=== PATIENT | male | born 1940 | race Caucasian/White ===

== ENCOUNTER 2019-12-19 09:55 | Outpatient (CLI) | payer OTHER, SELFPAY ==
--- NOTE | ~2019-12-19 | XR_ITS ---
EXAMINATION: XR chest 2V 12/19/2019 11:21 INDICATION: Preop. Hypertension. PROCEDURE: 2 view chest COMPARISON: 02/16/2008 FINDINGS: The lungs are clear. The cardiomediastinal silhouette is within normal limits. There are no pleural effusions. There is no pneumothorax suspected. 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 IMPRESSION: 1: NO ACUTE CARDIOPULMONARY DISEASE. Reviewed, dictated and finalized at location A.
[2019-12-19 11:21] LABS: Basophils Percent Auto 0.6 % (0.2-1.2); Eosinophils Absolute Auto 0.1 K/mm3 (0-0.3); Eosinophils Percent Auto 0.7 % (0-4.4); Hematocrit 37.2 % (42.0-52.0); Hemoglobin 12.6 g/dL (14.0-18.0); Immature Granulocyte Absolute 0.03 K/mm3 (0.00-0.031); Immature Granulocyte Percent A 0.4 % (0-0.5); Lymphocytes Absolute Auto 1.08 K/mm3 (0.9-3.2); Lymphocytes Percent Auto 15.3 % (18.3-44.2); Mean Corpuscular HGB Conc 33.9 g/dl (32-36); Mean Corpuscular Hemoglobin 31.7 pg (26-34); Mean Corpuscular Volume 93.7 fl (80-100); Mean Platelet Volume 10.5 fl (7.4-10.4); Monocytes Absolute Auto 0.7 K/mm3 (0.1-0.6); Monocytes Percent Auto 9.4 % (2.6-8.5); Neutrophils Absolute Auto 5.2 K/mm3 (1.3-6.7); Neutrophils Percent Auto 73.6 % (45.5-73.1); Platelet Count Result 240 k/mm3 (150-375); Red Blood Count 3.97 M/mm3 (4.6-6.20); Red Cell Distribution Width 13.5 % (11.5-14.5); White Blood Count 7.1 K/mm3 (4.5-10.0)
[2019-12-19 11:30] LABS: Urine Cotinine NEGATIVE
[2019-12-19 11:36] LABS: Anion Gap 8 mmol/L (8-16); Blood Urea Nitrogen 15 mg/dL (9-20); Calcium 8.8 mg/dL (8.4-10.2); Carbon Dioxide 25 mmol/L (22-30); Chloride 100 mmol/L (98-107); Estimated Glomerular Filt Rate 49; Glucose 87 mg/dL (75-110); Potassium 3.6 mmol/L (3.4-5.0); Sodium 133 mmol/L (137-145)
[2019-12-19 11:46] LABS: Hemoglobin A1C 5.1 % (<5.7)
== END 2019-12-19 09:56 | disposition home or self-care (01) ==
LOC: ANHSURGERY 10:00
PROVIDERS: Visit Provider Orthopaedic Surgery
DX: Z01.818 Encounter for other preprocedural examination (principal); M17.12 Unilateral primary osteoarthritis, left knee
CPT/HCPCS: 71046; 80048; 80307; 82040; 83036; 85025; 87070; 87077; 87186

== ENCOUNTER 2020-01-05 02:40 | Outpatient (CLI) | payer OTHER, SELFPAY ==
[2020-01-05 18:16] LABS: SARS-CoV-2 RNA PCR Negative
== END 2020-01-05 02:41 | disposition home or self-care (01) ==
LOC: ANHCOVIDDT 02:40
PROVIDERS: Visit Provider Orthopaedic Surgery
DX: Z01.812 Encounter for preprocedural laboratory examination (principal); Z20.828 Contact with and (suspected) exposure to other viral communicable diseases
CPT/HCPCS: 87635; C9803; U0003

== ENCOUNTER 2020-01-07 01:22 | Day surgery (SDC) | payer OTHER, SELFPAY ==
[2019-12-19 10:09] VITALS: BMI 25.7
[2019-12-19 10:17] VITALS: BP 173/72; PULSE 67; RESP 16; TEMP 36.8; O2SAT 99
--- NOTE | 2019-12-29 14:07 | PC.NURSE ---
STATES NO CHANGE IN HEALTH HX SINCE LAST INTERVIEW
--- NOTE | 2020-01-05 15:32 | PM.IMHP ---
H&P: HPI History of Present Illness Date/Time: 01/05/20 15:32 Chief complaint: Severe OA Left Knee Narrative: Jacky Mendiola is a [address] Montoya who presents today for a left total knee arthroplasty. Patient has been having pain in this knee for years. It is progressively worsening. He has severe medial compartment arthritis with a large cyst in the medial tibial plateau. His arthritis is progressing as well as his symptoms. He has symptoms on a daily basis and is fairly miserable. He has reached a point where he feels he would rather proceed with total knee arthroplasty rather continue nonsurgical treatment. Review of Systems Review of Systems: All systems reviewed & are unremarkable except as noted in HPI and below PMFSH Past Medical History Medical History Hypertension Seroma of musculoskeletal structure after musculoskeletal system procedure Sleep apnea Surgical History Surgical History H/O repair of rotator cuff History of colon resection laparoscopic sigmoid colon resection History of right inguinal hernia repair 01/20/19 Family History Family History Father Family history of malignant neoplasm of urinary bladder Malignant neoplasm of prostate Cancer Other Diabetes mellitus Social History Social History Smoking packs per day: 1 Smoking cigarettes per day: 20.0 Years smoked: 20 Smoking pack-years: 20.00 Smoking status: Former smoker Tobacco type: cigarettes Second hand tobacco smoke exposure: No Smoking end date: 03/26/68 Additional smoking assessment comments: DENIES ANY FORM OF TOBACCO/NICOTINE USE Alcohol intake: current Drinks per week: 6 Substance use: never Substance use type: does not use Gender identity (if verbalized by the patient): Male Spiritual care concerns: No Meds Home Medications and Allergies Home Medications Medication Instructions Recorded Confirmed Type ibuprofen 600 mg PO Q6H PRN #14 tablet 01/29/19 12/29/19 Rx tamsulosin 0.4 mg capsule 0.4 mg PO HS #90 cap 10/06/19 12/29/19 Rx acetaminophen [Tylenol] 650 mg PO PRN PRN 12/19/19 12/29/19 History fluticasone propionate [Flonase 1 spray INTRANASAL PRN PRN 12/19/19 12/29/19 History Allergy Relief] multivitamin,[id number] 1 tablet PO DAILY 12/19/19 12/29/19 History [Complete Multivitamin] Allergies Allergy/AdvReac Type Severity Reaction Status Date / Time No Known Allergies Allergy Verified 12/29/19 14:00 Exam Narrative: Exam Narrative: 79-year-old male very alert pleasant in no distress. He is 6 ft tall 208 lb. He walks without a gait aid has a mild limp. He has a moderate large effusion left knee. No redness or warmth. Range of motion of the knee is from 5-130 degrees. He has moderate tenderness over the medial joint line. Normal stability AP and mediolateral. 1+ edema around the ankle on the left trace on the right. Calves are soft nontender. 2+ posterior tibial artery pulse on the left absent dorsalis pedis pulse. No numbness to light touch sensation. Hip range of motion is full without discomfort. Normal quad strength. Resp: Auscultation: clear to auscultation bilaterally Cardio: Rate: regular rate Rhythm: regular rhythm Assessment and Plan Additional Plan Patient has severe medial compartment arthritis in the left knee with continued symptoms. He has reached a point where he would rather proceed with total knee arthroplasty rather continue nonsurgical treatment. Surgical procedures well as risks and complications were discussed in detail and all questions were answered. He will see his primary care doctor for pre-surgical clearance. 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 Echocardiogram showed ejection fraction 55%
[2020-01-07] VITALS (12 sets, daily range): BP systolic 96–165; BP diastolic 60–104; PULSE 67–107; RESP 10–20; TEMP 36.2–36.8; O2SAT 94–100
--- NOTE | ~2020-01-07 | XR_ITS ---
EXAMINATION: XR knee LT 2V DATE: 01/07/2020 16:33 INDICATION: Postoperative evaluation following left total knee arthroplasty. TECHNIQUE: Anteroposterior and lateral views of the left knee were obtained. COMPARISON: None. FINDINGS: Left total knee arthroplasty without patellar resurfacing appears well seated and in near anatomic al ignment. No fractures identified. Expected postoperative subcutaneous and intra-articular gas. IMPRESSION: 1. Left total knee arthroplasty, negative for postoperative purposes. Reviewed, dictated and finalized at location B.
[2020-01-07] MEDS: LACTATED RINGERS 1,000 ML 30 ML IV CONT ×2 (10:59→16:15)
--- NOTE | 2020-01-07 11:07 | WPDANESEPPF ---
Anes - Initial Pre Proc Eval Procedure: Operation Date: 01/07/20 12:00 Proposed Procedures p Left Total Knee Arthroplasty - Vincent Martínez MD Date/Time: 01/07/20 11:07 Surgeon: Vincent Martínez MD Pre Op Diagnosis: Severe OA Left Knee Patient Data Age: 79 Gender: M Height: 6 ft 2 in Weight: 91 kg Last Vital Signs Temp 98.3 F 12/19/19 10:17 Pulse 67 12/19/19 10:17 Resp 16 12/19/19 10:17 BP 173/72 H 12/19/19 10:17 Pulse Ox 99 12/19/19 10:17 Allergies Allergy/AdvReac Type Severity Reaction Status Date / Time No Known Allergies Allergy Verified 12/29/19 14:00 Home Medications Medication Instructions Recorded Confirmed Type ibuprofen 600 mg PO Q6H PRN #14 tablet 01/29/19 12/29/19 Rx tamsulosin 0.4 mg capsule 0.4 mg PO HS #90 cap 10/06/19 12/29/19 Rx acetaminophen [Tylenol] 650 mg PO PRN PRN 12/19/19 12/29/19 History fluticasone propionate [Flonase 1 spray INTRANASAL PRN PRN 12/19/19 12/29/19 History Allergy Relief] multivitamin,[id number] 1 tablet PO DAILY 12/19/19 12/29/19 History [Complete Multivitamin] Patient hx anesthesia problems: none Family hx anesthesia problems: none PMFSH Past Medical History Medical History Hypertension Seroma of musculoskeletal structure after musculoskeletal system procedure Sleep apnea Surgical History Surgical History H/O repair of rotator cuff History of colon resection laparoscopic sigmoid colon resection History of right inguinal hernia repair 01/20/19 Family History Family History Father Family history of malignant neoplasm of urinary bladder Malignant neoplasm of prostate Cancer Other Diabetes mellitus Social History Social History Smoking packs per day: 1 Smoking cigarettes per day: 20.0 Years smoked: 20 Smoking pack-years: 20.00 Smoking status: Former smoker Tobacco type: cigarettes Second hand tobacco smoke exposure: No Smoking end date: 03/26/68 Additional smoking assessment comments: DENIES ANY FORM OF TOBACCO/NICOTINE USE Alcohol intake: current Drinks per week: 6 Alcohol use details: BEER Substance use: never Substance use type: does not use Living arrangements: with family Gender identity (if verbalized by the patient): Male Spiritual care concerns: No Anes - Eval Final PreProcedure Day of Procedure 01/07/20 11:07 Patient weight: normal Heart: regular rate and rhythm Lungs: clear to auscultation Airway: Mallampati scale class II Neurological: alert and oriented Last oral intake: >/= 8 hours ASA classification: III Emergent: no Anesthetic plan: proceed Anesthesia type and monitoring: general LMA and standard monitoring Informed Consent: The patient's anesthetic plan and its attendant risks and benefits were discussed with the patient/family/POA. Questions were solicited and answers provided to the satisfaction of the patient/family/POA.
[2020-01-07] MEDS: TRANEXAMIC ACID 1,000MG/ISO100 1,000 MG/100 ML BAG 200 MG IVPB (11:22)
--- NOTE | 2020-01-07 11:53 | WPDHPUPDATE1 ---
History and Physical Update Update Date/Time: 01/07/20 11:53 History and Physical has been reviewed, including an updated exam of the patient. There are NO changes in the patient's condition. Risks, benefits, and alternatives have been discussed and questions answered. Patient agrees to proceed with procedure.
--- NOTE | 2020-01-07 12:38 | ECG_ITS ---
Measurements Intervals [place] Rate: 69 P: 42 DC: 181 QRS: 19 QRSD: 100 T: -10 QT: 423 QTc: 454 Interpretive Statements SINUS RHYTHM VENTRICULAR PREMATURE COMPLEX BORDERLINE ST-T WAVE ABNORMALITY- INFERIOR LEADS BASELINE ARTIFACT- I, II, III, AVF, V1-V2 BORDERLINE ECG Electronically Signed On 01-07-2020 13:09:53 CDT by Pramod Small D.O.
[2020-01-07] MEDS: ceFAZolin 2 GM/D5W 50 ML 2 GM/50 ML BAG IVPB (12:57)
--- NOTE | 2020-01-07 13:15 | ECG_ITS ---
Measurements Intervals [place] Rate: 66 P: 71 VT: 188 QRS: 24 QRSD: 102 T: -8 QT: 432 QTc: 454 Interpretive Statements SINUS RHYTHM BORDERLINE ST-T WAVE ABNORMALITY- INFERIOR LEADS BASELINE ARTIFACT- I, II, AVR BORDERLINE ECG Electronically Signed On 01-07-2020 13:52:47 CDT by Pramod Small D.O.
[2020-01-07] MEDS: ceFAZolin SODIUM 1 GM VIAL 3 GM IRRIGATION (13:35)
[2020-01-07] MEDS: GENTAMICIN BONE CEMENT REFOBACIN 1 EACH TOPICAL (13:45)
[2020-01-07] MEDS: TRANEXAMIC ACID 1,000 MG/10 ML AMPUL 1000 MG IV PUSH (15:12)
[2020-01-07] MEDS: ceFAZolin SODIUM 1 GM VIAL IV PUSH (15:14)
--- NOTE | 2020-01-07 16:15 | PM.PROC ---
Procedure Note - Detailed Date of procedure: 01/07/20 Pre-op diagnosis: Severe OA Left Knee Post-op diagnosis: same Procedure performed: Left total knee arthroplasty Description of procedure: Patient was brought to the operating room and general anesthesia was administered. He had an EKG prior to that that showed that he had sinus rhythm and atrial fibrillation intermittently and some PVCs which were noted before surgery. After consultation with Anesthesia, and review of his preoperative assessment and the city routeman prediction that he may have arrhythmia during surgery and advice to place him and a monitored unit after surgery if he did have arrhythmia during surgery, we elected to proceed. He received 2 g of Ancef weight based vancomycin 1 g of tranexamic acid preoperatively and the left leg was prepped draped usual fashion. Limb was exsanguinated tourniquet elevated to 300 mmHg. A 7 in longitudinal incision was made and a standard medial parapatellar arthrotomy utilized. Cartilage behind the patella and the trochlea was normal. I felt that the patella was most suitable for non resurfacing. A minimal lateral facetectomy was performed. A guide marvin was inserted down the femoral canal after aspiration of canal contents using the 5 degree valgus bushing 10 mm of bone removed from the distal femur. The tibia was cut to remove a skim cut off the medial tibial plateau the removed about 11 mm laterally. The cyst in the medial aspect of the medial plateau was carefully debrided. It was filled with mostly fibrocartilage of varying densities and this was carefully debrided down to intact bone. There was some violation of the medial wall proximally at the surface of the tibial plateau and this confirmed the on suitability for a partial knee replacement. Meniscal remnants were excised the PCL was recessed. Flexion gap measured 8 mm medially 12 mm laterally. We set the femoral guide at 5? of external rotation which matched Whitesides line and posterior referencing pin holes were placed and we applied the 72.5 cutting block which had a nice fit both anterior posterior and mediolateral. The tibia was sized to a size vanguard 75. His tibia was a little bit too narrow to have the 79 tibia fit without overhang at the proper rotation. With the 75 only a very small area of the edge of the component medially set over the defect so I did not feel we needed the stem. This was punched and we trialed and we found that the 13 mm insert gave appropriate stability at 90? of flexion but lacked a full 10? of extension. We removed 2 mm off the distal femur released posterior central capsule as he did have a 5 degree flexion contracture preoperatively and on trialing again we found that we still lacked about 2? of extension the barely positive bounce and no plate medially in extension. An additional 1 mm bone was removed from the distal femur chamfer cuts revisited and this time the naked knee came out to full extension with 1 mm medial opening no bounce and gravity flexion 140 with excellent anterior drawer stability throughout. The bony surfaces were prepared with a step drill. Two batches of methylmethacrylate were mixed 1 containing the gentamicin powder immediately applied to the tibial component the femoral component. Cement applied to the tibia and the defect carefully filled with cement and the tibial component fully seated. Cement applied to the femur femoral component fully seated and the knee brought into extension with a 13 mm 5 and 1 trial for cement pressurization. Tourniquet was released. After cement hardening excess cement was sought for removed. Hemostasis was achieved. Local anesthetic cocktail was injected. We trialed and the 13 was the appropriate size and this was snapped into place without difficulty range of motion stability and patellar tracking reconfirmed. Arthrotomy was closed with interrupted 2. Vicryl and running 1. You directional kobi strata fix
[2020-01-07] MEDS: fentaNYL CITRATE INJ (*CRX) 100 MCG/2 ML VIAL 25 MCG IV PUSH ×5 (16:35→17:44)
--- NOTE | 2020-01-07 17:16 | SUR.PHASEI ---
1715 - unable to palpate left pedal pulse. doppler used and strong pulse noted. left foot and toes are pink and warm to touch. dr. jones aware. ordered to remove TEDS on both legs and resume SCDS.
--- NOTE | 2020-01-07 19:46 | ADMGEN ---
This patient, Jacky Mendiola, was admitted to IMU Room [id number]. Patient/family oriented to hospital policies and general routines including ID bracelet, bed and alarms, visiting hours, pain management, procedures, bathroom and other care routines, personal items, smoking policy, room service/diet, and visiting hours. Valuables list has been completed. Information on how to activate the Rapid Response Team has been discussed. Patient/Family are encouraged to report perceived risks to care and to ask questions if they do not understand what they are told or what they should do.
[2020-01-07] MEDS: ACETAMINOPHEN 500 MG TABLET 1000 MG PO (20:12)
[2020-01-07] MEDS: DOCUSATE SODIUM 100 MG CAPSULE PO (20:12)
[2020-01-07] MEDS: oxyCODONE HCL (*CRX) 2.5 MG TAB IR PO (20:12)
[2020-01-07] MEDS: TAMSULOSIN HCL 0.4 MG CAPSULE PO (20:46)
--- NOTE | 2020-01-07 21:56 | PM.IMCN ---
Assessment and Plan Assessment and plan (1) History of total left knee replacement: Code(s): Z96.652 - Presence of left artificial knee joint Status: Acute Assessment and Plan: performed today. See operative report. Dressing is dry and intact to left knee. He has bilateral SCDs on and TEDs. DVT prophylaxis per ortho. Pain management per Ortho. Postop care per Ortho. Patient stated he is going to his daughter's house to rehab for short period time before he goes home to his and dog. It looks like the patient will be on Eliquis as well. (2) BPH w urinary obs/LUTS: Code(s): N40.1 - Benign prostatic hyperplasia with lower urinary tract symptoms; N13.8 - Other obstructive and reflux uropathy Status: Chronic Assessment and Plan: The patient is having some difficulty urinating at this time. We may need to straight cath if he has a bladder scan is over 300. The patient is on tamsulosin so we did restart that. (3) Essential (primary) hypertension: Code(s): I10 - Essential (primary) hypertension Status: Chronic Assessment and Plan: Patient currently is not on any blood pressure medicine will continue to monitor. Patient recently underwent at very thorough cardiac workup and has a EF of 55-60% he also had a stress test and was cleared by Cardiology. HPI Data of Consult Consult date: 01/07/20 Requesting Physician: Vincent Jones MD Primary Care Provider: Naldo Montoya Consult Narrative Narrative: Jacky Mendiola is a 79 year old male Who is primarily severe osteoarthritis. The patient has tried conservative measures he has progressively worse discomfort in his FX is daily living. He has pain on a daily basis and is fairly miserable. He has tried conservative measures without any relief. He has tried NSAIDs. And different exercises. The patient had extensive preop workup. The patient had an echo which shows an EF of approximately 50-55%. He also had a thorough workup with financial consultant prior to surgery. Patient was told that he has a slightly irregular heart rate and he also had some what sounds like thallium stress test. The patient stated that he had some heart disease but not enough to keep him from having surgery. He was then cleared for surgery. There was some concern about an irregular heartbeat so the patient was placed in IMU for further monitoring postoperatively. The patient underwent a left total knee arthroplasty per Dr. jones today. See the operative note. Estimated blood loss was approximately 200 mL and no immediate complications were noted. Patient is up in the chair and has no complaints at this time. The patient stated that he has BPH and has difficulty urinating when he sits down like to stand up and I instructed him to get assistance before getting up. The patient tells me that he is going to do his rehab at his daughter's house postoperatively. Date of consult is 01/07/2020 Review of Systems Review of Systems: All systems reviewed & are unremarkable except as noted in HPI and below Constitutional: Constitutional: Reports as per HPI and Reports no additional constitutional complaints Eyes: Eyes: Reports as per HPI and Reports no additional eye complaints ENT: Reports system reviewed and no additional complaints, except as documented and Reports Normal hearing present Cardiovascular: Cardiovascular: Reports no additional cardiovascular complaints Respiratory: Respiratory: Reports no additional respiratory complaints and Reports no additional respiratory complaints Gastrointestinal: Gastrointestinal: Reports as per HPI and Reports no additional gastrointestinal complaints Musculoskeletal: Musculoskeletal: Reports no additional musculoskeletal complaints Integumentary/Breasts: Skin/Breast: Reports system reviewed and no additional complaints, except as docu and Reports as per HPI Neurologic: Reports system reviewed and no additional compla
[2020-01-07] MEDS: oxyCODONE HCL (*CRX) 5 MG TAB IR PO (22:58)
[2020-01-08] VITALS (8 sets, daily range): BP systolic 128–148; BP diastolic 51–76; PULSE 61–87; RESP 16–20; TEMP 35.7–36.8; O2SAT 97–98
--- NOTE | 2020-01-08 | PC.NURSE ---
Bladder scanned patient with results greater than 999mls x 3. Will straight cath patient per order from Laure Rubio.
[2020-01-08] MEDS: oxyCODONE HCL (*CRX) 2.5 MG TAB IR PO ×4 (01:00→14:04)
[2020-01-08] MEDS: ACETAMINOPHEN 500 MG TABLET 1000 MG PO ×3 (01:00→14:05)
[2020-01-08 04:58] LABS: Basophils Absolute Auto 0.1 K/mm3 (0.0-0.1); Basophils Percent Auto 0.4 % (0.2-1.2); Eosinophils Percent Auto 0.1 % (0-4.4); Hemoglobin 10.9 g/dL (14.0-18.0); Immature Granulocyte Absolute 0.05 K/mm3 (0.00-0.031); Immature Granulocyte Percent A 0.4 % (0-0.5); Lymphocytes Percent Auto 8.9 % (18.3-44.2); Mean Corpuscular Hemoglobin 32.1 pg (26-34); Mean Corpuscular Volume 97.1 fl (80-100); Mean Platelet Volume 10.8 fl (7.4-10.4); Monocytes Absolute Auto 1.2 K/mm3 (0.1-0.6); Neutrophils Absolute Auto 8.9 K/mm3 (1.3-6.7); Neutrophils Percent Auto 79.2 % (45.5-73.1); Platelet Count Result 222 k/mm3 (150-375); Red Cell Distribution Width 14.4 % (11.5-14.5); White Blood Count 11.2 K/mm3 (4.5-10.0)
[2020-01-08 05:19] LABS: Anion Gap 2 mmol/L (8-16); Blood Urea Nitrogen 14 mg/dL (9-20); Calcium 8.2 mg/dL (8.4-10.2); Carbon Dioxide 31 mmol/L (22-30); Chloride 100 mmol/L (98-107); Estimated CRCL calculation 66 ml/min; Estimated Glomerular Filt Rate > 60; Glucose 124 mg/dL (75-110); Sodium 133 mmol/L (137-145)
--- NOTE | 2020-01-08 07:12 | PM.PNORT ---
Progress Note: A&P Additional Plan POD 1 alert. avss labs-noted, pt is having min pain, wd-dry, was up to chair last night. PT to work with pt today. overall pt is doing very well. plan to send home this afternoon Subjective Subjective Date/Time Seen: 01/08/20 07:12 Objective Data Vital Signs Vital Signs: Vital Signs - 24 hr 01/07/20 10:25 01/07/20 16:15 01/07/20 16:30 Temperature 36.8 C 36.2 C L Pulse Rate 67 86 85 Respiratory Rate 20 10 L 13 Blood Pressure 159/104 H 96/60 L 112/69 Pulse Oximetry 100 95 96 01/07/20 16:45 01/07/20 17:00 01/07/20 17:15 Temperature Pulse Rate 88 85 83 Respiratory Rate 16 12 15 Blood Pressure 143/84 H 147/88 H 149/88 H Pulse Oximetry 95 100 100 01/07/20 17:30 01/07/20 17:45 01/07/20 19:55 Temperature 36.2 C L Pulse Rate 82 84 102 H Respiratory Rate 16 20 20 Blood Pressure 157/89 H 165/91 H 146/87 H Pulse Oximetry 99 100 99 01/07/20 20:00 01/07/20 21:18 01/07/20 22:00 Temperature Pulse Rate 99 107 H 94 Respiratory Rate Blood Pressure Pulse Oximetry 94 01/08/20 00:00 01/08/20 01:49 01/08/20 04:00 Temperature 36.1 C L 35.7 C L Pulse Rate 87 77 61 Respiratory Rate 16 16 Blood Pressure 148/76 H 140/51 L Pulse Oximetry 97 97 01/08/20 05:47 01/08/20 06:17 01/08/20 07:07 Temperature 36.8 C 36.2 C L Pulse Rate 67 63 Respiratory Rate 20 Blood Pressure 128/76 Pulse Oximetry 98 Intake/Output Intake/Output: Intake & Output 01/05/20 01/06/20 01/07/20 01/08/20 23:59 23:59 23:59 23:59 Intake Total 1500 900 Output Total 550 2200 Balance 950 -1300 Meds/Results Medications: Active Medications Generic Name Dose Route Start Last Admin Trade Name Freq PRN Reason Stop Dose Admin Acetaminophen 1,000 mg 01/07/20 18:00 01/08/20 04:58 Acetaminophen 500 Mg Tablet PO 1,000 mg Q6HR ALBARO Administration Apixaban 2.5 mg 01/08/20 09:00 Apixaban 2.5 Mg Tablet PO 01/19/20 21:01 Q12HR ALBARO Cephalexin HCl 500 mg 01/08/20 18:00 Cephalexin 500 Mg Capsule PO 01/18/20 18:01 Q6HR ALBARO Docusate Sodium 100 mg 01/07/20 17:53 01/07/20 20:12 Docusate Sodium 100 Mg Capsule PO 100 mg BID ALBARO Administration Fluticasone Propionate 1 spray 01/07/20 17:53 Fluticasone Propionate 0.05% Na Spr 16 Gm Btl (*Bkc) NASAL PRN PRN Allergy Symptoms Cefazolin Sodium 1 gm in 50 mls @ 100 mls/hr 01/07/20 21:00 01/08/20 05:28 Ancef 1 Gm/D5w 50 Ml Pm IVPB 01/08/20 13:29 Infused Q8H [facility] Infusion Vancomycin HCl 1,000 mg in 250 mls @ 250 mls/hr 01/07/20 23:00 01/07/20 23:54 Vancomycin 1,000 Mg/D5w 250 Ml IVPB 01/08/20 11:59 Infused Q12H [facility] Infusion Multivitamins/Calcium 1 tablet 01/08/20 09:00 Therapeutic Multivitamins/Minerals Tab (*Bkc) PO DAILY [facility] Naloxone HCl 0.1 mg 01/07/20 17:53 Naloxone Hcl 0.4 Mg/Ml Vial IV PUSH Q2M PRN Opiate Reversal Oxycodone HCl 2.5 mg 01/07/20 21:00 01/08/20 04:58 Oxycodone Hcl (*Crx) 2.5 Mg Tab Ir PO 2.5 mg Q4HR ALBARO Administration Oxycodone HCl 5 mg 01/07/20 17:53 01/07/20 22:58 Oxycodone Hcl (*Crx) 5 Mg Tab Ir PO 5 mg Q4H PRN Administration Pain Rated 7-10 Polyethylene Glycol 17 gm 01/08/20 09:00 Polyethylene Glycol 3350 17 Gm Powd.Pack PO QAM ALBARO Senna/Docusate Sodium 2 tab 01/07/20 17:53 01/07/20 20:57 Senna/Docusate Sodium Tablet PO Not Given BID ALBARO Tamsulosin HCl 0.4 mg 01/07/20 21:00 01/07/20 20:46 Tamsulosin Hcl 0.4 Mg Capsule PO 0.4 mg HS ALBARO Administration Radiology Results: ITS Impressions Knee X-Ray 01/07/20 16:33 IMPRESSION: 1. Left total knee arthroplasty, negative for postoperative purposes. Labs Labs: Laboratory Results - last 24 hr 01/07/20 01/08/20 01/08/20 10:54 04:38 04:38 WBC 11.2 H RBC 3.40 L Hgb 10.9 L Hct 33.0 L MCV 97.1 MCH 32.1 MCHC 33.0 RDW 14.4 Plt Count 222 MPV 10.8 H
--- NOTE | 2020-01-08 07:18 | PM.DS ---
DS: Admitting Diagnosis Admitting Diagnosis Admitting Diagnosis: Severe OA Left Knee DS: Summary Time Spent with Patient Time attestation: 79-YEAR-OLD MALE WHO UNDERWENT LEFT TOTAL KNEE ARTHROPLASTY on 01/07/2020 underwent procedure without any complications. Postoperatively he has been afebrile vital Signs was stable. Neurovascular intact. He has and Mepilex dressing over his left knee. He is weight-bearing as tolerated. Date of surgery he was out of bed to the chair comfortably. His pain is well controlled with scheduled Tylenol as well as oxycodone 2.5 mg. Patient will work with therapy postoperatively today if he does well we will plan on sending him home this afternoon. He will be on 2 weeks of Eliquis for DVT prophylaxis followed by baby aspirin twice a day. He is also going home with a week of Keflex due to his positive nasal swab. He has also gone home on MiraLax and Senokot for constipation. He will continue with his scheduled Tylenol as well. Patient was advised to keep leg elevated to prevent swelling but also to his exercises multiple times during the day. He has outpatient therapy at [place] outpatient therapy twice and schedule on Sunday DS: Data Data Completed and Pending Labs on day of discharge: Labs from last 24 hours 01/08/20 01/08/20 01/07/20 04:38 04:38 10:54 WBC 11.2 H RBC 3.40 L Hgb 10.9 L Hct 33.0 L MCV 97.1 MCH 32.1 MCHC 33.0 RDW 14.4 Plt Count 222 MPV 10.8 H Immature Gran % (Auto) 0.4 Neut % (Auto) 79.2 H Lymph % (Auto) 8.9 L Rice % (Auto) 11.0 H Eos % (Auto) 0.1 Baso % (Auto) 0.4 Lymph # (Auto) 1.00 Rice # (Auto) 1.2 H Eos # (Auto) 0.0 Baso # (Auto) 0.1 Abs Immat Gran (auto) 0.05 H Absolute Neuts (auto) 8.9 H Absolute Nucleated RBC 0.0 Nucleated RBC % 0.0 Sodium 133 L Potassium 4.0 Chloride 100 Carbon Dioxide 31 H Anion Gap 2 L BUN 14 Creatinine 0.90 Estim Creat Clear Calc 66 Estimated GFR > 60 Glucose 124 H Calcium 8.2 L Blood Type O Negative Antibody Screen Negative Discharge Plan Discharge Patient Disposition: Home, Self-Care Discharge Instructions: VINCENT MARTÍNEZ M.D [facility], [facility] [address] [place] [address] POST-OPERATIVE DISCHARGE INSTRUCTIONS TOTAL KNEE ARTHROPLASTY 1. When resting, lie on back with leg elevated above hear to minimize swelling. Significant swelling could indicate a blood clot and if this occurs call the office (or go to the ER) to have a venous ultrasound. 2. Do exercise 5 times a day. 3. Do not sit with leg down except for meals. 4. Wound Care: Nursing will give additional dressings at discharge. Patient to change dressing at home 1 week from surgery, then maintain until seen in office. 5. May shower with dressing in place. 6. Follow weight bearing status instructions. Stand Alone Forms: General Discharge Instructions Follow-up/Referrals: Vincent Martínez MD [Physician] - Keep Reg. Scheduled Appt. Discharge Medications: New acetaminophen 500 mg Tablet 1,000 mg PO Q6HR Qty: 90 RF: 0 Eliquis 2.5 mg Tablet 2.5 mg PO Q12HR Qty: 13 RF: 0 cephalexin 500 mg Capsule 500 mg PO Q6HR Qty: 27 RF: 0 sennosides-docusate sodium [Senokot-S] 8.6-50 mg Tablet 2 tab PO BID Qty: 60 RF: 0 oxycodone 5 mg Tablet 5 mg PO Q4H PRN (Reason: Pain Rated 7-10) Qty: 40 RF: 0 polyethylene glycol 3350 [Miralax] 17 gram Powder In Packet 17 g PO QAM Qty: 30 RF: 0 Continued fluticasone propionate [Flonase Allergy Relief] 50 mcg/actuation spray,suspension 1 spray INTRANASAL PRN PRN (Reason: Allergy Symptoms) RF: 0 Complete Multivitamin Tablet 1 tablet PO DAILY RF: 0 tamsulosin 0.4 mg capsule 0.4 mg PO HS Qty: 90 RF: 1 Discontinued ibuprofen 600 mg tablet 600 mg PO Q6H PRN (Reason: pain) Qty: 14 RF: 0 acet
--- NOTE | 2020-01-08 08:44 | PM.CNCAR ---
Assessment and Plan Assessment and plan (1) PVC (premature ventricular contraction): Code(s): I49.3 - Ventricular premature depolarization Status: Acute Assessment and Plan: It seems that this patient has a long history of PVCs. It was noticed preoperatively with a negative Lexiscan stress test. Normal LV systolic function. Denies dizziness or palpitations or syncope. Denies chest pain. No ischemic changes on EKG. Electrolytes are normal. Likely more frequent PVCs because of the stress from the surgery.. Recommend observation. No indication for further cardiac workup. History of Present Illness History of Present Illness Consult date/time: Date of service 01/08/20 08:44 Requesting physician: Vincent Jones MD Consult reason: Other (Atrial fibrillation during surgery) Reason For Visit: Severe OA Left Knee Narrative: This is a 79-year-old patient who apparently had left knee arthroplasty because of severe osteoarthritis yesterday 01/07/2020 and was noticed to have irregular heartbeats on the telemetry. Apparently the patient has a long standing history of irregular heartbeats. Before this knee operation he so with [facility] and underwent Lexiscan stress test that was negative for ischemia and at that time was told that he has a lot of PVCs. He also states that about 20 years ago he saw another game room attendant here at [facility] for the same reason. He denies chest pain, shortness of breath, dizziness, syncope, palpitations, orthopnea, paroxysmal nocturnal dyspnea. Echocardiogram done at [facility] September 2019 shows ejection fraction 55%, impaired relaxation, mild left atrial enlargement. EKG interpreted myself shows sinus rhythm. Occasional PVCs. Chest x-ray reviewed myself looks unremarkable. Review of Systems Constitutional: Constitutional: Denies chills, Denies fever(s) and Denies poor appetite Eyes: Eyes: Denies eye discharge, Denies loss of vision, Denies eye pain and Denies photophobia ENT: Denies dizziness, Denies epistaxis, Denies nasal congestion and Denies sore throat Cardiovascular: Cardiovascular: Denies chest pain, Denies syncope, Denies pedal edema, Denies leg edema, Denies palpitations, Denies dyspnea, Denies dyspnea on exertion and Denies orthopnea Respiratory: Respiratory: Denies cough, Denies dyspnea, Denies dyspnea on exertion and Denies wheezing Gastrointestinal: Gastrointestinal: Denies abdominal pain, Denies diarrhea, Denies nausea and Denies vomiting Genitourinary: Genitourinary: Denies hematuria, Denies genital lesions and Denies dysuria Musculoskeletal: Musculoskeletal: Reports arthralgias, Denies joint swelling and Denies numbness Integumentary/Breasts: Skin/Breast: Denies pruritus and Denies rash Neurologic: Denies dizziness, Denies syncope, Denies loss of vision and Denies numbness Psychiatric: Psychiatric: Denies anxiety and Denies depression Endocrine: Endocrine: Denies cold intolerance, Denies heat intolerance and Denies palpitations Hematologic/Lymphatic: Hematologic/Lymphatic: Denies easy bleeding and Denies easy bruising Allergic/Immunologic: Allergic/Immunologic: Denies urticaria and Denies wheezing PMFSH Past Medical History Medical History BPH w urinary obs/LUTS Essential (primary) hypertension History of anal fissures repair Hypertension Polyp of colon Seroma of musculoskeletal structure after musculoskeletal system procedure Sleep apnea Surgical History Surgical History H/O left inguinal hernia repair 2011the patient had I and D of a hematoma postoperatively H/O repair of rotator cuff History of colon resection laparoscopic sigmoid colon resection History of right inguinal hernia repair 01/20/19 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 jones S/P laparoscopic-assisted
[2020-01-08] MEDS: oxyCODONE HCL (*CRX) 5 MG TAB IR PO ×2 (09:00→14:05)
[2020-01-08] MEDS: SENNA/DOCUSATE SODIUM TABLET 2 TAB PO (09:01)
[2020-01-08] MEDS: DOCUSATE SODIUM 100 MG CAPSULE PO (09:01)
[2020-01-08] MEDS: THERAPEUTIC MULTIVITAMINS/MINERALS TAB (*BKC) 1 TABLET PO (09:02)
[2020-01-08] MEDS: polyethylene glycoL 3350 17 GM POWD.PACK PO (09:02)
[2020-01-08] MEDS: APIXABAN 2.5 MG TABLET PO (09:47)
--- NOTE | 2020-01-08 11:40 | PM.IMPN ---
Progress Note: A&P Assessment and Plan (1) History of total left knee replacement: Code(s): Z96.652 - Presence of left artificial knee joint Status: Acute Assessment and Plan: Medicine was consulted on the case after the patient underwent a left total knee arthroplasty by Dr. Martínez on 01/07/2020. Pain management, Discharge planning, Post-op care, DVT Prophylaxis per Dr. Martínez. Patient stated he is going to his daughter's house to rehab for short period time Patient is medically cleared by Medicine for discharge once stable from surgical standpoint (2) BPH w urinary obs/LUTS: Code(s): N40.1 - Benign prostatic hyperplasia with lower urinary tract symptoms; N13.8 - Other obstructive and reflux uropathy Status: Chronic Assessment and Plan: The patient was having some difficulty urinating after surgery. He did have a Keane catheter in place during the procedure. We continued his home Flomax. Patient reports urinating well without any issues at this time. (3) Essential (primary) hypertension: Code(s): I10 - Essential (primary) hypertension Status: Chronic Assessment and Plan: Blood pressure is much improved today after his surgery. Could be elevated secondary to increased pain from surgery. Will have him follow-up with primary care provider as an outpatient. Time Spent With Patient Time with patient: 25 - 35 minutes Subjective Date/time seen: 01/08/20 11:40 Interval history: Date of service 01/08/2020: Patient states he is feeling well. He just got done with therapy and his left knee hurts a little bit but it is not too bad. He does have a sore throat from being intubated during his surgery yesterday. He is otherwise eating and drinking without any issues. He is passing gas. He denies any chest pain, shortness of breath, cough, fever, chills, nausea, vomiting, abdominal pain, diarrhea, leg swelling or any other symptoms at this time. Review of Systems Review of Systems: All systems reviewed & are unremarkable except as noted in HPI and below Exam Narrative: Exam Narrative: General: 79-year-old man laying flat in bed. Appears comfortable. In no acute distress. Skin: No jaundice or cyanosis. Good skin turgor. Neck: Full range of motion. Supple. Respiratory: Lungs are clear to auscultation bilaterally. No bony chest wall tenderness. Cardiovascular: The heart has a regular rate and rhythm without murmur. Lower extremities: Surgical dressing in place over anterior left knee without signs of drainage, erythema, warmth. There is slight edema to left knee from surgery. No lower extremity edema. Distal pulses are easily palpated. No calf tenderness to palpation. Gastrointestinal: The abdomen is soft, nontender and nondistended with active bowel sounds. Psychiatric: Lucid and oriented. Memory intact. Neurologic: No focal deficits. Speech is clear. No facial drooping. Objective Data Vital Signs Vital Signs: Vital Signs - 24 hr 01/07/20 16:15 01/07/20 16:30 01/07/20 16:45 Temperature 97.1 F L Pulse Rate 86 85 88 Respiratory Rate 10 L 13 16 Blood Pressure 96/60 L 112/69 143/84 H Pulse Oximetry 95 96 95 01/07/20 17:00 01/07/20 17:15 01/07/20 17:30 Temperature Pulse Rate 85 83 82 Respiratory Rate 12 15 16 Blood Pressure 147/88 H 149/88 H 157/89 H Pulse Oximetry 100 100 99 01/07/20 17:45 01/07/20 19:55 01/07/20 20:00 Temperature 97.2 F L Pulse Rate 84 102 H 99 Respiratory Rate 20 20 Blood Pressure 165/91 H 146/87 H Pulse Oximetry 100 99 01/07/20 21:18 01/07/20 22:00 01/08/20 00:00 Temperature 96.9 F L Pulse Rate 107 H 94 87 Respiratory Rate 16 Blood Pressure 148/76 H Pulse Oximetry 94 97 01/08/20 01:49 01/08/20 04:00 01/08/20 05:47 Temperature 96.3 F L Pulse Rate 77
[2020-01-08] MEDS: BENZOCAINE/MENTHOL (*BKC) 18 EA LOZENGE 1 LOZENGE PO (14:08)
--- NOTE | 2020-01-08 14:26 | PCOTNOTE ---
On 01/08/20, the student, Latonia Pro, provided care and completed [facility] documentation on this patient. I have reviewed the student's documentation and agree with the findings.
== END 2020-01-08 15:56 | disposition home or self-care (01) ==
LOC: ANHSURGERY 10:11 → ANHIMU 17:55
PROVIDERS: Visit Provider Orthopaedic Surgery
PROC: (CPT 27447; principal; 2020-01-07 12:00)
DX: M17.12 Unilateral primary osteoarthritis, left knee (principal); N40.1 Benign prostatic hyperplasia with lower urinary tract symptoms; N13.8 Other obstructive and reflux uropathy; I49.3 Ventricular premature depolarization; I10 Essential (primary) hypertension; G47.30 Sleep apnea, unspecified; Z87.891 Personal history of nicotine dependence
CPT/HCPCS: 27447; 36415; 73560; 80048; 85025; 86850; 86900; 86901; 93005; 97110; 97116; 97165; 97530; A9270; C1713; C1776; J0131; J0171; J0690; J1100; J2270; J2370; J2405; J2704; J2795; J3010; J3370; J7120

== ENCOUNTER 2020-01-09 10:28 | Emergency (ER) | payer OTHER, SELFPAY ==
[2020-01-09 10:30] VITALS: BP 151/90; PULSE 73; RESP 18; TEMP 36.6; O2SAT 97
--- NOTE | 2020-01-09 10:46 | ED.MALEGU ---
HPI - Male Genitourinary General Chief complaint: Urogenital-Male Stated complaint: Can't urinate Time Seen by Provider: 01/09/20 10:46 Source: patient and RN notes reviewed Mode of arrival: wheelchair Limitations: no limitations History of Present Illness Complaint: other ( Urinary retention) Onset (ago): day(s) (1) Duration: constant Severity: moderate Relieving factors: movement Exacerbating factors: urination Context: recent surgery Associated symptoms: Reports urinary retention and dysuria Related Data Sexually active: No Home Medications Medication Instructions Recorded Confirmed Complete Multivitamin 1 tablet PO DAILY 12/19/19 01/09/20 fluticasone propionate [Flonase 1 spray INTRANASAL PRN PRN 12/19/19 01/09/20 Allergy Relief] Allergies Allergy/AdvReac Type Severity Reaction Status Date / Time No Known Allergies Allergy Verified 01/07/20 11:13 Review of Systems Review of Systems: All systems reviewed & are unremarkable except as noted in HPI and below Constitutional: Constitutional: Denies chills, Denies fever(s) and Denies weakness Genitourinary: Genitourinary: Denies hematuria, Denies urinary frequency and Denies urinary incontinence PMFSH Past Medical History Medical History BPH w urinary obs/LUTS Essential (primary) hypertension History of anal fissures repair Hypertension Polyp of colon PVC (premature ventricular contraction) Seroma of musculoskeletal structure after musculoskeletal system procedure Sleep apnea Surgical History Surgical History H/O left inguinal hernia repair 2011the patient had I and D of a hematoma postoperatively H/O repair of rotator cuff History of colon resection laparoscopic sigmoid colon resection History of right inguinal hernia repair 01/20/19 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 jones S/P laparoscopic-assisted sigmoidectomy hand assisted laparoscopic sigmoidectomy 2014 Family History Family History Father Family history of malignant neoplasm of urinary bladder Malignant neoplasm of prostate Cancer Sibling Cancer Diabetes mellitus Social History Social History Social History: the patient is and lives with his . However his daughter sandro is his durable power title attorney for healthcare. The patient desires to be a full code. The patient is retired from the steel mill He has 1 son and 1 daughter. Patient quit smoking in 1968. No marijuana or illicit drugs. Smoking packs per day: 1 Smoking cigarettes per day: 20.0 Years smoked: 20 Smoking pack-years: 20.00 Smoking status: Former smoker Tobacco type: cigarettes Second hand tobacco smoke exposure: No Smoking end date: 03/26/68 Additional smoking assessment comments: DENIES ANY FORM OF TOBACCO/NICOTINE USE Alcohol intake: current Drinks per week: 6 Substance use: never Substance use type: does not use Gender identity (if verbalized by the patient): Male Spiritual care concerns: No Exam Const: General: healthy appearing and no acute distress Nutritional Appearance: well nourished Orientation/consciousness: patient oriented x3 HENMT: Head: normal to inspection Face and sinus: normal facial exam Eyes: Conjunctivae: conjunctivae normal Pupils: Equal, round and reactive pupils present EOM: EOMs intact bilaterally Neck: Neck: normal visual inspection Resp: Effort & Inspection: normal respiratory effort Auscultation: clear to auscultation bilaterally Cardio: Rate: regular rate Rhythm: regular rhythm GI: GI Palp: Yes Soft to palpation and Yes Tenderness to palpation present (GI) ( suprapubic area) Auscultation: normal bowel sounds Back/Spine/Pelvis: Cervical Spine: cervical ROM normal Thoracic/Lumbar
[2020-01-09 11:20] VITALS: BP 150/79; PULSE 77; RESP 16; O2SAT 96
[2020-01-09 11:37] LABS: Add Urine Microscopic? NO; Appearance Urine Clear (Clear); Bilirubin Urine Negative (Negative); Blood Urine Negative (Negative); Color Urine Yellow (Yellow); Glucose Urine UA Negative (Negative); Ketones Urine Negative (Negative); Leukocyte Esterase Ur Negative LEU/UL (Negative); Nitrate Urine Negative (Negative); Protein Urine Negative (Negative); Urobilinogen Urine 0.2 mg/dL (0.2-1.0)
== END 2020-01-09 11:20 | disposition home or self-care (01) ==
PROVIDERS: Emergency Provider Emergency Medicine; PCP Family Medicine
DX: R33.9 Retention of urine, unspecified (principal)
CPT/HCPCS: 81003; 99281; 99283

== ENCOUNTER 2020-02-16 14:45 | Outpatient (RCR) | payer OTHER, SELFPAY ==
--- NOTE | 2020-01-12 14:05 | PTOPEVAL ---
PHYSICAL THERAPY EVALUATION AND PLAN OF CARE Thank you for referring Jacky Mendiola to [facility].? The patient is scheduled to be seen for therapy?2x/week for 4 weeks. Please review, sign, date and return this plan of care JANIE. I agree with and certify that the following plan of care is medically necessary. Referring Physician Date Attending Provider: Vincent Seymour MD Evaluation Hx Neurological Disorders No Significant History Cardiovascular History Hx Other Cardiac Disorders Yes: SAW DR BHARDWAJ PER DR SEYMOUR FOR CARDIAC CLEARANCE. 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 hx rectal fissure repair Genitourinary History Hx Benign Prostatic Hyperplasia Yes Musculoskeletal History Hx Arthritis Yes: knees Hx Fractures Yes: lt ankle, collarbone Hx Orthopedic Surgery Yes: rt rotator cuff repair 1999 Hx Other Musculoskeletal Disorders Yes: OA LT KNEE Hematological History Hx Hematological Disorders No Significant History Endocrine History Hx Endocrine Disorders No Significant History HEENT History Hx Other HEENT Disorders Yes: GLASSES Integumentary History Hx Skin Disorders No Significant History Reproductive History Hx Reproductive Disorders No Significant History Psychosocial History Hx Psychiatric Disorders No Significant History Pain History History of Any Previous or Ongoing No Significant History Instance of Pain Anesthesia History Hx Anesthesia Reactions No Significant History Evaluation Information Problem Diagnosis L TKA Onset 01/07/2020 Additional Evaluation Detail 5 days after surgery, patient was unable to void. He went to [facility] emergency room, where they placed a catheter and drained 2L of urine. He continues to have the catheter and has a follow up with urologist on Sunday, 01/15. Subjective Information Jacky is here 6 days s/p left Query Text:As Reported By Patient/ TKA. He is experiencing pain; Family using ice and pain medication. He is also participating in HEP that he was provided with at the
--- NOTE | 2020-01-28 09:31 | PCPTNOTE ---
Patient called & cancelled scheduled appointment this date due to having a cough and doesn't want to come in if feeling sick.
--- NOTE | 2020-02-09 16:15 | PCPTNOTE ---
Patient called & cancelled scheduled appointment on 02/10/2020 due to COVID quarantine.
--- NOTE | 2020-02-16 15:18 | PTOPEVAL ---
PHYSICAL THERAPY DISCHARGE NOTE Thank you for referring Jacky Mendiola to [facility].? Please review, sign, date and return this plan of care JANIE. I agree with and certify that the following plan of care is medically necessary. Referring Physician Date Attending Provider: Vincent Martínez MD Discharge repair Diagnosis L TKA Onset 01/07/2020 Subjective Information Jacky is 6 weeks post op left Query Text:As Reported By Patient/ TKA. He reports that he is Family doing well in regards to pain. He missed 2 weeks of therapy due to required quarantine from exposure to COVID - 19, but he never tested positive. Jacky is climbing his stairs at home daily and only uses his walker in case he feels like he needs extra assist for balance. Self Report Pain Assessment Left Knee(s) Reported Pain Level 2 Pain Description Tightness Pain Frequency Acute,Continuous Pain Aggravating Factors Exercise/Activity,Prolonged Position,Stair Climbing, Walking,Weight Bearing/ Standing Pain Score Pain Score 2: Self Report Lower Extremity Range of Motion Knee Range of Motion Left Knee Flexion Range of Motion - Active 124 Knee Extension Range of Motion - Active 0 Query Text: Lower Extremity Muscle Strength Testing Hip Strength Left Hip Flexion Strength 5 Normal Hip Extension Strength 4 Good Hip Abduction Strength 4+ Good + Knee Strength Left Knee Flexion Strength 5 Normal Knee Extension Strength 4+ Good + Gait Assessment 2 Minute Walk Total Distance Walked (feet) 315 2 Minute Walk Gait Speed Score (feet/ 2.62 second) Stair Climbing Assessment Stair Climbing Assessment Stair Climbing Assistive Devices Railings Weight Bearing Status - Left As Tolerated Weight Bearing Status - Right Full Maintains Weight Bearing Status Yes Number of Steps Climbed (Steps) 4 Number of Repetitions (Repetitions) 2 Technique Alternating Steps Stair Climbing Direction Both Up and Down Stair Climbing Ability Independent Safety Assessment Patient Safety Factors Affecting Safety No Concerns PT Clinical Summary Jacky is an 79 yo male 6 weeks s/p left TKA. Jacky is demonstrating good gait
== END 2020-02-17 11:11 | disposition home or self-care (01) ==
LOC: ANHPT 14:45
PROVIDERS: PCP Family Medicine; Visit Provider Orthopaedic Surgery
DX: M17.12 Unilateral primary osteoarthritis, left knee (principal)
CPT/HCPCS: 97110; 97140; 97161

== ENCOUNTER 2020-07-06 14:58 | Outpatient (CLI) | payer OTHER, SELFPAY ==
--- NOTE | ~2020-07-06 | MR_ITS ---
EXAMINATION: MR knee RT wo con DATE: 07/06/2020 16:23 INDICATION: Right knee pain. TECHNIQUE: Magnetic resonance imaging (MRI) of the right knee was performed without intravenous contr ast. Sequences included axial PD-weighted FS FSE, coronal PD-weighted FSE and PD-weighted FS FSE, sag ittal PD-weighted FSE, and sagittal T2-weighted FS FSE. COMPARISON: Right knee radiographs 02/04/2018 FINDINGS: Medial compartment: There is maceration of the body and posterior horn of medial meniscus. There is full-thickness cartil age loss of tibial condyle involving the central and medial articular surface with subchondral cysts and subchondral edema-like marrow signal intensity. There is full-thickness cartilage loss of tibial condyle involving the central, medial, and posterior articular surface with subchondral cysts and sub chondral edema-like marrow signal intensity. Osteophytes are noted. Lateral compartment: There is a torn bucket-handle tear of lateral meniscus displaced into the intercondylar notch. There is shallow partial-thickness cartilage loss of tibial condyle. There is partial-thickness cartilage l oss of femoral condyle, deep at the central articular surface. There are tiny osteophytes. Patellofemoral compartment: There is shallow partial-thickness cartilage loss of patellar medial and lateral facets. There is car tilage surface irregularity of trochlea. Ligaments and tendons: The anterior and posterior cruciate ligaments are normal. There are changes of prior sprains of media l collateral ligament and tibial collateral ligament characterized by increased signal intensity and proximal thickening. The patellar tendon is normal. Fluid: There is a large knee joint effusion. There is moderate prepatellar and superficial infrapatellar bur sitis. There is subcutaneous edema about the knee. IMPRESSION: 1. Severe chondrosis of medial compartment, moderate chondrosis of lateral compartment, and mild kayden drosis of patellofemoral compartment. 2. Tears of medial and lateral menisci. 3. Large knee joint effusion. Reviewed, dictated and finalized at location A. IMPRESSION: 1. Severe chondrosis of medial compartment, moderate chondrosis of lateral comp artment, and mild chondrosis of patellofemoral compartment. 2. Tears of medial and lateral menisci. 3. Large knee joint effusion.
== END 2020-07-06 14:59 | disposition home or self-care (01) ==
PROVIDERS: PCP Family Medicine; Visit Provider Orthopaedic Surgery
DX: S83.251A Bucket-handle tear of lateral meniscus, current injury, right knee, initial encounter (principal); S83.281A Other tear of lateral meniscus, current injury, right knee, initial encounter; M25.461 Effusion, right knee
CPT/HCPCS: 73721

== ENCOUNTER 2021-06-14 12:50 | Outpatient (CLI) | payer MEDICARE, SELFPAY ==
--- NOTE | 2021-06-14 13:10 | ECHO_ITS ---
Patient Info Name: Jacky Mendiola Age: 80 years : 1940 Gender: Male Ht: 74 in Wt: 215 lbs BSA: 2.27 m2 HR: 55 bpm BP: 152 / 88 mmHg Heart Rhythm: Sinus Rhythm Technical Quality: Fair Exam Date: 06/14/2021 12:53 PM Exam Location: [facility] Patient Status: Outpatient Admit Date: 06/14/2021 Staff Ordering Physician: AnaNaldo PA-C Hydrometeorological Technician: Joseline Gallego Attending Provider: AnaNaldo PA-C Exam Type: CA echo doppler color flow Study Info Indications I48.1 - Persistent atrial fibrillation Complete two-dimensional, color flow and Doppler transthoracic echocardiogram is performed. Summary 1. Complete two-dimensional, color flow and Doppler transthoracic echocardiogram is performed. 2. Left ventricular chamber dimension is mildly enlarged. 3. Left ventricular systolic function is preserved, estimated at 50-55%. 4. There is mildly increased left ventricular wall thickness. 5. The left ventricular diastolic function is grade I diastolic dysfunction. 6. E/e' 7 is not elevated. 7. Left atrial chamber dimension is mildly enlarged. 8. There is mild aortic valve regurgitation. 9. There is trace mitral valve regurgitation. 10. There is mild tricuspid valve regurgitation. 11. No pulmonary hypertension, estimated pulmonary arterial systolic pressure is 30 mmHg. 12. The aortic root size at the sinus of Valsalva is mildly dilated at 4.2 cm. Left Ventricle E/e' 7 is not elevated. Left ventricular systolic function is preserved, estimated at 50-55%. Left ventricular chamber dimension is mildly enlarged. There is mildly increased left ventricular wall thickness. The left ventricular diastolic function is grade I diastolic dysfunction. Right Ventricle Right ventricular systolic function is normal and with normal TAPSE 1.9 cm. Right ventricular chamber dimension is normal. Left Atria Left atrial chamber dimension is mildly enlarged. Right Atria Right atrial chamber dimension is normal. Aortic Valve The aortic valve is trileaflet. There is no aortic valve stenosis. There is mild aortic valve regurgitation. Pulmonic Valve There is no pulmonic regurgitation. Mitral Valve There is no mitral valve stenosis. There is trace mitral valve regurgitation. Tricuspid Valve There is mild tricuspid valve regurgitation. No pulmonary hypertension, estimated pulmonary arterial systolic pressure is 30 mmHg. Pericardium/Pleural There is no pericardial effusion. Inferior Vena Cava Normal inferior vena cava with >50% collapse upon inspiration consistent with normal right atrial pressure, 5 mmHg. Aorta The aortic root size at the sinus of Valsalva is mildly dilated at 4.2 cm. Left Ventricular Outflow Tract Name Value Normal LVOT 2D LVOT Diameter 2.1 cm LVOT Doppler LVOT Peak Velocity 106 cm/s LVOT Peak Gradient 4 mmHg LVOT Mean Gradient 3 mmHg LVOT VTI 22 cm LVOT VTI/AV VTI Ratio 1.0 LVOT Stroke Volume 78 ml
== END 2021-06-14 12:51 | disposition home or self-care (01) ==
LOC: CHSIMG 13:01
PROVIDERS: PCP Family Medicine; Visit Provider Physician Assistant
DX: I48.91 Unspecified atrial fibrillation (principal)
CPT/HCPCS: 93306

== ENCOUNTER 2021-07-13 10:03 | Outpatient (CLI) | payer MEDICARE, SELFPAY ==
--- NOTE | 2021-07-18 11:55 | P.PCNHOL_ITS ---
Holter/Event Monitor Holter/Event Monitor Date of procedure: 07/13/21 Holter/Event Procedure: 48 Hr Holter Monitor Indications: Abnormal EKG Conclusion: 1. 48 hour holter monitor on 07/13/21. 2. Predominant rhythm is sinus or ectopic atrial rhythm, HR range 42-148 bpm; average HR 77 bpm. 3. There are 10,007 premature supraventricular complexes, 1,212 supraventricular couplets, 39 supraventricular bigeminy and 349 supraventricular trigeminy. There are 139 episodes of atrial tachycardia, fastest at 160 bpm and longest lasting 8 beats. 4. There are 25,276 premature ventricular complexes, 806 ventricular couplets, 6 7 ventricular triplets, 16,468 ventricular bigeminy, and 2,508 ventricular trigeminy. No ventricular tachycardia. 5. No sinoatrial or atrioventricular blocks. No significant pauses greater than 2 seconds. 6. No symptoms available for correlation.
== END 2021-07-13 10:04 | disposition home or self-care (01) ==
LOC: CHSCARD 10:09
PROVIDERS: PCP Family Medicine
DX: R94.31 Abnormal electrocardiogram [ECG] [EKG] (principal); Z87.891 Personal history of nicotine dependence; I10 Essential (primary) hypertension; I49.3 Ventricular premature depolarization; Z01.810 Encounter for preprocedural cardiovascular examination; Z13.6 Encounter for screening for cardiovascular disorders
CPT/HCPCS: 93225; 93226

== ENCOUNTER 2024-05-18 20:01 | Observation (INO) | payer MEDICARE, SELFPAY ==
[2024-05-18] VITALS (23 sets, daily range): BP systolic 142–178; BP diastolic 70–94; PULSE 53–71; RESP 14–22; TEMP 38.1–38.2; O2SAT 89–95; BMI 28.1
--- NOTE | ~2024-05-18 | XR_ITS ---
CHEST RADIOGRAPH CLINICAL HISTORY: fever, WEAKNESS, COUGH, SHORTNESS OF BREATH . COMPARISON: 12/19/2019 TECHNIQUE: Single portable view of the chest. FINDINGS The cardiomediastinal silhouette is unremarkable. Increased interstitial markings are identified bilaterally, findings suggesting mild pulmonary vascul ar congestion. The lungs are otherwise clear. IMPRESSION: Mild pulmonary vascular congestion, without focal infiltrate or effusion. Reviewed, dictated and finalized at location A. F SERVICE OBSERVER
--- OUTSIDE RECORDS SUMMARY | 2024-05-18 20:04 | XMS_ITS | Clinical Summary ---
Author Organization [facility] Address [address] [place] [address] Care Team Providers Care Options Trader Name Role Phone Sam Munguia MD Primary Care Provider Allergies No known active allergies Medications finasteride 5 MG tablet Take 1 tablet (5 mg total) by mouth daily. 07/18/2020 Active lisinopril 30 MG tablet Take 1 tablet (30 mg total) by mouth daily. 10/04/2020 Active tamsulosin 0.4 MG Cap Take 1 capsule (0.4 mg total) by mouth daily. 07/18/2020 Active amLODIPine 5 MG tablet Take 1 tablet (5 mg total) by mouth daily. Active metoprolol succinate ER (TOPROL-XL) 50 MG 24 hr tablet Take by mouth daily. Active Active Problems Problem Noted Date Diagnosed Date Closed intertrochanteric fra cture of hip, left, initial encounter ([facility]) 11/07/2022 History of hemiarthroplasty of right hip 022 Encounter for rehabilitation 07/25/2021 Closed right hip fracture ([facility]) 06/25 Aortic regurgitation 07/08/2021 Tricuspid regurgitation 07/08/2021 Aortic root dilatation 07/08/2021 Personal history of nicotine dependence 10/13/19 Primary hypertension 10/13/2019 PVCs (premature ventricular contractions) 2019 Resolved Problems Problem Noted Date Diagnosed Date Resolved Date Aftercare following right kn ee joint replacement surgery 11/04/2020 11/15/2022 Status post total right knee replacement 10/26/2020 11/04/2020 Primary osteoarthritis of right knee 10/11/2020 11/04/2020 Effusion of right knee joint 10/11/2020 11/15/2022 Immunizations Name Administration Dates Next Due PFIZER COVID-19 (ORIGINAL FO RMULATION, PURPLE CAP) mRNA, LNP-S, PF, 30 MCG/0.3 ML DOSE 06/11/2020,05/20/2020 Family History Medical History Relation Comments Cancer Father No Known Problems Mother Relation Status Comments Father Mother Social History Tobacco Use Types Packs/Day Years Used Date Smoking Tobacco: Former Cigarettes Q uit: 10/11/1980 Smokeless Tobacco: Former Tobacco Cessation:Counseling Given: Not Answered Alcohol Use Standard Drinks/Week Comments Yes 0 (1 standard drink = 0.6 oz pur e alcohol) Humiliation, Afraid, Rape, and Kick questionnair e Answer Date Recorded Within the last year, have y ou been afraid of your partner or ex-partner? No 11/07/2022 Within the last year, have y ou been humiliated or emotionally abused in other ways by your partner or ex-partner? No Within the last year, have y ou been kicked, hit, slapped, or otherwise physically hurt by your partner or ex-partner? No 11/07/2022 Within the last year, have y ou been raped or forced to have any kind of sexual activity by your partner or ex-partner? No 11/07/2022 Overall Financial Resource Strain (CARDIA) Answe r Date Recorded How hard is it for you to pa y for the very basics like food, housing, medical care, and heating? Not hard at all 11/07/2022 Hunger Vital Sign Answer Date Recorded Within the past 12 months, y ou worried that your food would run out before you got the money to buy more. Never true 11/08/19 Within the past 12 months, t he food you bought just didn't last and you didn't have money to get more. Never true 11/07/2022 PRAPARE - Transportation Answer Date Re corded In the past 12 months, has l ack of transportation kept you from medical appointments or from getting medications? No 10/24 In the past 12 months, has l ack of transportation kept you from meetings, work, or from getting things needed for daily living? No 11/07/2022 Housing Stability Vital Sign Answer Bob e Recorded In the last 12 months, was t here a time when you were not able to pay the mortgage or rent on time? No 11/07/2022 In the last 12 months, how many places have you lived? 1 11/07/2022 In the last 12 months, was t here a time when you did not have a steady place to sleep or slept in a skilled nursing (including now)? No 11/07/2022 Sex and Gender Information Value Date Recorded Sex Assigned at Not on file Legal Sex Male 10:51 PM CDT Gender Identity Not on file Sexual Orientation Not on file Last Filed Vital Signs Vital Sign Reading Time Taken Comments Blood Pressure 157/82 11/18/2022 12:25 PM CDT Pulse 68 11/18/2022 12:25 PM CDT Temperature 36.7 C (98.1 F) 11/18/2022 12:25 PM CDT Respiratory Rate 18 11/18/2022 12:25 PM CDT Oxygen Saturation 100% 11/18/2022 12:25 PM CDT Inhaled Oxygen Concentration - - Weight 98 kg (216 lb) 11/14/2022 3:24 PM CDT Height 188 cm (6' 2 ) 11/14/2022 3:24 PM CDT Body Mass Index 27.73 11/14/2022 3:24 PM CDT Plan of Treatment Health Maintenance Due Date Last Done Comments DTaP, Tdap and Td Vaccines ( 1 - Tdap) 1957 Zoster Vaccines (1 of 2) 1988 Annual Medicare Wellness Visit 10/03/2003 RSV Immunization or 60+ Years (1 - 1-dose 75+ series) 2013 Pneumococcal Vaccine: 65+ Years (2 of 2 - PCV) 03/03/2019 03/03/2018 COVID-19 Vaccine ( - 2023-2 5 season) 2023 01/13/2021, 06/11/2020, 05/20/2020 Influenza Adult (#1) 2023 12/12/2017, 12/28/2014, 01/16/2013 Meningococcal B Vaccine Aged Out No l onger eligible based on patient's age to complete this topic Meningococcal Vaccine Aged Out No karen susan eligible based on patient's age to complete this topic RSV Immunizations Under 20 Months Aged Out No longer eligible b ased on patient's age to complete this topic Goals Goal Patient Goal Type Associated Problems Recent Progress Patient-Stated? Author Safety Patient/family will have appropriate support at home upon discharge General On track( 022 1:08 PM CDT) Yuliet Smith LSW Medical Devices Implanted Type Area Consumer Marketing Specialist Device Identifier Shelf Expiration Date Model / Serial / Lot Cement Simplex Hv W/Gentamicin - [id number] Implanted:Qty: 1 on 10/25/2020 by Rod Logan MD at [facility] Cement Implant Right: Knee [employer] 07/23/2021 6195-1-010 / / [id number] Cement Simplex Hv W/Gentamicin - [id number] Implanted:Qty: 1 on 10/25/2020 by Rod Logan MD at [facility] Cement Implant Right: Knee [employer] 07/23/2021 6195-1-010 / / [id number] Head Depuy Femoral Articuleze 28mm +1.5 - [id number] Implanted:Qty: 1 on 07/20/2021 by Rod Logan MD at [facility] Hip Components Right: Hip [employer] [id number] 09/22/2025 [id number] / / [id number] Kit Avelino Nail Trochanteric 11mm X 180mm - [id number] Implanted:Qty: 1 on 11/07/2022 by Rod Logan MD at [facility] Nail Left: Hip [employer] [id number] 07/24/2027 3125-1180S / / [id number] Screw Bone 10.5mm 105mm Gamma3 Titanium Lag Sterile Trochanter Nail 180 - [id number] Implanted:Qty: 1 on 11/07/2022 by Rod Logan MD at [facility] Screw Left: Hip [employer] [id number] 05/24/2027 3060-0105S / / [id number] Screw Avelino Locking Fully Threaded 5 X 45mm - [id number] Implanted:Qty: 1 on 11/07/2022 by Rod Logan MD at [facility] Screw Left: Hip [employer] [id number] 04/25/2025 1896-5045S / / [id number] Attune Femoral Cruciate Retaining Size 8 Right Cemented Implanted:Qty: 1 on 10/25/2020 by Rod Logan MD at [facility] Right: Knee [employer]Y [id number] 12/23/2029 1504-00-208 / / [id number] Attune Knee System Tibial Base Rotating Platform Size 7 Cemented Implanted:Qty: 1 on 10/25/2020 by Rod Logan MD at [facility] Right: Knee [employer]PUY [id number] 12/23/2029 1506-80-007 / / [id number] Attune Patella Medialized Dome 35mm Cemented Aox Implanted:Qty: 1 on 10/25/2020 by Rod Logan MD at [facility] Right: Knee DEPUY [id number] 12/23/2024 1518-20-035 / / [id number] Attune Tibial Insert Rotating Platform Cruciate Retaining Size 8 7mm Aox Implanted:Qty: 1 on 10/25/2020 by Rod Logan MD at [facility] Right: Knee DEPUY [id number] 03/25/2025 1516-30-807 / / [id number] Femoral Stem 03/08 Taper Actis Duofix Hip Prosthesis Cementless Size 10 Standard Collar Implanted:Qty: 1 on 07/20/2021 by Rod Logan MD at [facility] Right: Hip [employer] [id number] 06/23/2030 1010-11-100 / / [id number] Self Centering Bi-Polar Head 28mm Id 55mm Implanted:Qty: 1 on 07/20/2021 by Rod Logan MD at [facility] Right: Hip DEPUY [id number] 12/23/2024 1035-55-000 / / [id number] Explanted Type Area Consumer Marketing Specialist Device Identifier Shelf Expiration Date Model / Serial / Lot Drill Bit Gamma3 System Avelino 4.2 X 300mm - [id number] Explanted:Qty: 1 on 11/07/2022 by Rod Logan MD at [facility] Drill Left: Hip [employer] [id number] 05/24/2027 8650-9263 S / / [id number] Wire K [place] Gamma 3 3.4d049lu - [id number] Explanted:Qty: 1 on 11/07/2022 at [facility] Wire Left: Hip [employer] [id number] 06/24/2027 8218-1939 S / / [id number] Wire K Avelino Gamma 3 3.8i154oh - [id number] Explanted:Qty: 1 on 11/07/2022 by Rod Logan MD at [facility] Wire Left: Hip [employer] [id number] 06/24/2027 9463-7054 S / / [id number] Insurance HUMAN Advance Directives * Full Code (Latest Code Status on File) Date Activated Date Inactivated Comments 11/14/2022 9:24 AM 01/17/2023 2:12 PM * Full Code Date Activated Date Inactivated Comments 11/08/2022 12:05 PM 11/14/2022 9:22 AM * Full Code Date Activated Date Inactivated Comments 07/23/2021 10:09 AM 07/27/2021 12:11 PM * Full Code Date Activated Date Inactivated Comments 07/19/2021 10:28 PM 07/23/2021 10:07 AM * Full Code Date Activated Date Inactivated Comments 10/26/2020 6:51 AM 10/26/2020 6:02 PM Care Teams Options Trader Relationship Specialty Start Date End Date Sam Munguia MD [address] [place] [phone] PCP - General FAMILY PRACTICE 10/06/20
--- OUTSIDE RECORDS SUMMARY | 2024-05-18 20:04 | XMS_ITS | CONTINUITY OF CARE DOCUMENT ---
Author Name moises de leon Address Unknown Organization [facility] Address [address] [address] [place] [address] Phone [phone] Care Team Providers Care Literacy Education Professor Name Role Phone Toma PARIS, Eleanor Thomas Unavailable KIERRA HENAO MD Unavailable [phone] KIERRA HENAO MD Unavailable [phone] PROBLEMS Condition Status Date Provider Notes Cardiology examination active Eleanor greenberg MD Pre op cardiovascular exam active Eleanor Chua MD PVC's active Eleanor Chua MD HTN essential active Eleanor Chua MD Tobacco abuse- hx of active Eleanor yap MD Abnormal electrocardiogram active Eleanor Chua MD Aortic regurgitation active Eleanor ypa MD Tricuspid regurgitation active Eleanor boone MD Aortic regurgitation active Eleanor yap MD Tricuspid regurgitation active Eleanor boone MD Aortic root dilatation active Eleanor greenberg MD ENCOUNTERS Date Type Provider Location Encounter Diag nosis - In-person encounter Office Visit Eleanor Chua MD [facility] Aortic regurgitationTricuspid regurgitationAortic regurgitationTricuspid regurgitationAortic root dilatation - In-person encounter Office Visit Eleanor Chua MD [facility] Cardiology examinationPre op cardiovascular examPVC'sHTN essentialTobacco abuse- hx ofAbnormal electrocardiogram VITAL SIGNS Date Observation Value Provider Body Mass Index (Ratio) 26.99 kg/m2 Luis Felipe Chua MD blood pressure, diastolic 81 mm[Hg] Li nkLogic blood pressure, systolic 157 mm[Hg] Yessica kLogdavid blood pressure, diastolic 81 mm[Hg] Haily Kang blood pressure, systolic 157 mm[Hg] German Kang oxygen saturation, oximetry 98 % Alex Kang respiratory rate E&M 18 /min Kevyn Kang pulse rate 58 /min Alex rodriguez weight E&M 199 [lb_av] Alex rodriguez blood pressure, cuff size regular Haily Kang height E&M 72 [in_i] Alex rodriguez Body Mass Index (Ratio) 1.17 kg/m2 Luis Felipe Chua MD blood pressure, diastolic 90 mm[Hg] Aram Napoles blood pressure, systolic 170 mm[Hg] Susan Napoles oxygen saturation, oximetry 97 % Renae Napoles respiratory rate E&M 16 /min Renae Napoles pulse rate 72 /min Renae gleason weight E&M 72 [lb_av] Renae gleason height E&M 208 [in_i] Renae gleason blood pressure, cuff size regular Cy enrique Napoles ALLERGIES No Known Drug Allergies HISTORY OF MEDICATION USE Medication Status Instructions Dates Provider Indications Com ments metoprolol tartrate 50 mg tablet active Take 1 tablet by mouth twice daily Alex Kang lisinopril 30 mg tablet active Take 1 tablet by mouth once a day Alex Kang Flonase Allergy Relief 50 mcg/actuation spray,suspensio n active Take as directed Renae Napoles tamsulosin 0.4 mg capsule active Take 1 tablet once a day Renae Napoles SOCIAL HISTORY Date Observation Value Provider Underweight no Eleanor yap MD Exercise counseling yes Mya Kang Underweight yes Eleanor yap MD social history E&M S moking History: Ester vazquez is a former smoker. Eleanor Chua MD social history reviewed E&M revi ewed - no changes required Eleanor Chua MD cigarette use yes Eleanor billy MD smoking status Former smoker Eleanor boone MD number of grandchildren Eleanor Chua MD smoking history, tot al pack/day 1 PPD Renae Napoles INSURANCE PROVIDERS Payer name Policy type / Coverage type [employer] alliance party ID Neolane [id number] ADVANCE DIRECTIVES Name Date DISCUSSED - NO DECISION MADE TREATMENT PLAN Date Name Performer [id number],S,4 .22 mm on echo at sinus valsalva. Probably normal for his body He is 6'2 Eleanor Chua MD [id number],C,Mild TR on ec ho PAP 30 Eleanor Chua MD [id number],C,MIld AR on ec ho Eleanor Chua MD [id number],C,Still has PVC is on EKG Eleanor Chua MD [id number],C,S ummary 1 . Complete two-dimensional, color flow and Doppler transthoracic e chocardiogram is performed. 2 . Left ventricular chamber dimension is mildly enlarged. 3 . Left ventricular systolic function is preserved, estimated at 50-55%. 4 . There is mildly increased left ventricular wall thickness. 5 . The left ventricular diastolic function is grade I diastolic dysfunction. 6 . E/e? 7 is not elevated. 7 . Left atrial chamber dimension is mildly enlarged. 8 . There is mild aortic valve regurgitation. 9 . There is trace mitral valve regurgitation. 1 0. There is mild tricuspid valve regurgitation. 1 1. No pulmonary hypertension, estimated pulmonary arterial systolic p ressure is 30 mmHg. 1 2. The aortic root size at the sinus of Valsalva is mildly dilated at 4.2 c m. Eleanor Chua MD [id number],C,C ONCLUSIONS: 1 . Normal sinus rhythm. Ventricular bigeminy. 2 . Regadenoson infusion per protocol. No diagnostic ST or T changes. There is no EKG evidence of myocardial ischemia with v asodilator stress. 3 . Abnormal perfusion imaging - see below. There is a diaphragmatic attenuation artifact noted. The severity of the artifact is m ild. Technical quality of study is good. Left ventricle cavity size with stress is unchanged. JACKY RENNER R Study Dt:10/15/2019 Page 2 4 . The inferobasilar wall has a severe perfusion abnormality defect. The defect is not reversible. 5 . Left Ventricular Ejection Fraction is 60 %. TID: 0.85. No symptoms of angia enhacne medical management recommended Eleanor Chua MD [id number],C,R ecalls an episode were his BP dropped down to 90. Checks BP a home, usually in the 130-140 range H is updated medication list for this problem includes: Metoprolol Tartrate 50 Mg Tablet (Metoprolol tartrate) ..... Take 1 tablet by mouth twice daily Lisinopril 30 Mg Tablet (Lisinopril) ..... Take 1 tablet by mouth once a day BP today: 157/81 P rior BP: 170/90 (10/13/2019) Eleanor Chua MD Cardiology:4.22 mm o n echo at sinus valsalva. Probably normal for his body He is 6'2 Eleanor Chua MD Cardiology:Mild TR on echo PAP 3 0 Eleanor Chua MD Cardiology:MIld AR on echo Anna Chua MD Cardiology:Still has PVC is on E KG Eleanor Chua MD Cardiology:Summary 1 . Complete two-dimensional, color flow and Doppler transthoracic e chocardiogram is performed. 2 . Left ventricular chamber dimension is mildly enlarged. 3 . Left ventricular systolic function is preserved, estimated at 50-55%. 4 . There is mildly increased left ventricular wall thickness. 5 . The left ventricular diastolic function is grade I diastolic dysfunction. 6 . E/e? 7 is not elevated. 7 . Left atrial chamber dimension is mildly enlarged. 8 . There is mild aortic valve regurgitation. 9 . There is trace mitral valve regurgitation. 1 0. There is mild tricuspid valve regurgitation. 1 1. No pulmonary hypertension, estimated pulmonary arterial systolic p ressure is 30 mmHg. 1 2. The aortic root size at the sinus of Valsalva is mildly dilated at 4.2 c m. Eleanor Chua MD Cardiology:CONCLUSIO NS: 1 . Normal sinus rhythm. Ventricular bigeminy. 2 . Regadenoson infusion per protocol. No diagnostic ST or T changes. There is no EKG evidence of myocardial ischemia with vasodilator stress. 3 . Abnormal perfusion imaging - see below. There is a diaphragmatic attenuation artifact noted. The severity of the artifact is m ild. Technical quality of study is good. Left ventricle cavity size with stress is unchanged. Letitia JACKY DCLi Study Dt:10/15/2019 Page 2 4 . The inferobasilar wall has a severe perfusion abnormality defect. The defect is not reversible. 5 . Left Ventricular Ejection Fraction is 60 %. TID: 0.85. No symptoms of angia enhacne medical management recommended Eleanor Chua MD Cardiology:Recalls a n episode were his BP dropped down to 90. Checks BP a home, usually in the 130-140 range H is updated medication list for this problem includes: Metoprolol Tartrate 50 Mg Tablet (Metoprolol tartrate) ..... Take 1 tablet by mouth twice daily Lisinopril 30 Mg Tablet (Lisinopril) ..... Take 1 tablet by mouth once a day BP today: 157/81 P rior BP: 170/90 (10/13/2019) Eleanor Chua MD Cardiology New Patie nt :Probably has white coat HTN. Asked him to check BP's periodically at home. No major murmur noted on exam. Should be able to tolerate IV BP med rx during surgery. Eleanor Chua MD Cardiology New Patie nt :PVCs noted. LVH noted. Check nuclear stress. Eleanor Chua MD Cardiology New Patie nt :Remote Hx of smoking 50 years ago. Eleanor Chua MD Cardiology New Patie nt :Plan on getting noninvasive testing due to abnormal EKG. Eleanor Chua MD Cardiology New Patie nt :Probably related to Hx of LVH and HTN as noted on EKG. Check stress to evaluate for ischemia. Eleanor Chua MD Date Name Holter Monitor 48 hr Complete Echo Stress Regadenoson EKG Stress Exercise Card iolite HISTORY OF PROCEDURES Procedure Date Procedure Name Provider Procedure Notes S tatus EKG Eleanor Chua MD compl eted Regadenoson, 4 units Eleanor Chua MD completed Cardiolite, 2 units Eleanor Chua MD completed SPECT Images Eleanor Chua MD com pleted Stress EKG Eleanor Chua MD compl eted
--- NOTE | 2024-05-18 20:15 | ED_ITS ---
HPI - Weakness General Chief complaint: Shortness of Breath/Dyspnea Stated complaint: Weakness Time Seen by Provider: 05/18/24 20:14 Source: patient Mode of arrival: ambulatory Limitations: no limitations History of Present Illness HPI Narrative: patient is an 83-year-old male who has been having some urinary incontinence as well as generalized weakness over the past week. He has shortness of breath as well. 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) Associated symptoms: fever/chills, loss of appetite, myalgias and shortness of breath Related Data Home Medications ?Medication ?Instructions ?Recorded ?Confirmed ?Last Taken ?Type fluticasone propionate 50 1 spray intranasal PRN PRN Allergy 12/19/19 05/18/24 1 Day Ago History mcg/actuation nasal Symptoms ~01/06/20 spray,suspension (Flonase Allergy Relief) multivitamin,mq-dldj-gavdijkg 1 tablet PO DAILY 12/19/19 05/18/24 1 Week Ago History (Complete Multivitamin tablet) ~12/31/19 Allergies Allergy/AdvReac Type Severity Reaction Status Date / Time No Known Allergies Allergy Verified 08/13/20 07:42 Review of Systems 2 Review of Systems: All systems reviewed & are unremarkable except as noted in HPI and below Constitutional: Constitutional: Reports no additional constitutional complaints Eyes: Eyes: Reports no additional eye complaints ENT: Reports system reviewed and no additional complaints, except as documented Cardiovascular: Cardiovascular: Reports no additional cardiovascular complaints Respiratory: Respiratory: Reports no additional respiratory complaints Gastrointestinal: Gastrointestinal: Reports no additional gastrointestinal complaints Genitourinary: Genitourinary: Reports no additional male genitourinary complaints Musculoskeletal: Musculoskeletal: Reports no additional musculoskeletal complaints Integumentary/Breasts: Skin/Breast: Reports system reviewed and no additional complaints, except as docu Neurologic: Reports system reviewed and no additional complaints, except as documented Psychiatric: Psychiatric: Reports no additional psychiatric complaints Endocrine: Endocrine: Reports no additional endocrine complaints Hematologic/Lymphatic: Hematologic/Lymphatic: Reports no additional hematologic/lymphatic complaints Allergic/Immunologic: Allergic/Immunologic: Reports no additional allergic/immunologic complaints PMFSH Past Medical History Medical History PVC (premature ventricular contraction) History of anal fissures repair BPH w urinary obs/LUTS Essential (primary) hypertension Polyp of colon 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 jones H/O left inguinal hernia repair 2011the patient had I and D of a hematoma postoperatively History of right inguinal hernia repair 01/20/19 History of colon resection laparoscopic sigmoid colon resection H/O repair of rotator cuff Family History Family History Father Family history of malignant neoplasm of urinary bladder Malignant neoplasm of prostate Cancer Sibling Cancer Diabetes mellitus Social History Social History Social History: the patient is and lives with his . However his daughter sandro is his durable power contract attorney for healthcare. The patient desires to be a full code. The patient is retired from the [employer] He has 1 son and 1 daughter. Patient quit smoking in 1968. No marijuana or illicit drugs. Smoking packs per day: 1 Smoking cigarettes per day: 20.0 Years smoked: 20 Smoking pack-years: 20.00 Smoking status: Former smoker Tobacco type: cigarettes Second hand tobacco smoke exposure: No Smoking end date: 03/26/68 Additional smoking assessment comments: DENIES ANY FORM OF TOBACCO/NICOTINE USE Alcohol intake: current Drinks per week: 6 Alcohol use details: BEER Substance use: never Substance use type: does not use Living arrangements: alone Occupation/Education: retired Gender identity (if verbalized by the patient): Male Sexual Orientation (if Verbalized by the Patient): Straight or Heterosexual Spiritual care concerns: No Exam 2 Const: General: ill appearing Nutritional Appearance: well nourished O rientation/consciousness: patient oriented x3 Limitations: no limitations HENMT: Head: normal to inspection Ears: external ears normal F charissa/Nose/Sinus: Normal external nose present Eyes: Conjunctivae: conjunctivae normal Pupils: Equal, round and reactive pupils present EOM: EOMs intact bilaterally Neck: Neck: normal visual inspection Chest: Chest palpation & inspection: normal inspection of the chest Resp: Effort & Inspection: normal respiratory effort and not labored A uscultation: clear to auscultation bilaterally, no crackles, no rales, no rhonchi, no wheezes, breath sounds present and diminished lung sounds ( bilaterally and diffuse) Cardio: Rate: regular rate Rhythm: regular rhythm Heart sounds: no murmurs GI: Inspection: non-distended GI Palp: Yes Soft to palpation and No Tenderness to palpation present (GI) Auscultation: normal bowel sounds : General: Yes bladder normal to palpation Back/Spine/Pelvis: Back: no CVA tenderness Skin: General skin exam: normal color Rashes: no rashes Wounds: no wounds Neuro: General: patient oriented x3 Cranial nerves: Yes Nystagmus not present Speech: normal speech Gait exam (Neuro): gait abnormal Other: generalized weakness without focal deficit Extrem: General: normal to inspection Psych: Mental Status: mental status grossly normal Affect: normal affect Attitude: cooperative Course Vital Signs Vital signs: Vital Signs Temperature 38.2 C H 05/18/24 20:05 Pulse Rate 65 05/18/24 20:05 Respiratory Rate 20 05/18/24 20:05 Blood Pressure 159/94 H 05/18/24 20:05 Pulse Oximetry 89 L 05/18/24 20:05 Oxygen Delivery Room Air 05/18/24 20:05 Oxygen Flow Rate 3 05/18/24 20:05 Temperature 38.2 C H 05/18/24 20:05 Pulse Rate 65 05/18/24 21:33 Respiratory Rate 20 05/18/24 21:33 Blood Pressure 163/70 H 05/18/24 21:33 Pulse Oximetry 92 05/18/24 21:33 Oxygen Delivery Nasal Cannula 05/18/24 20:24 Oxygen Flow Rate 3 05/18/24 20:24 MDM - Weakness MDM Narrative Medical decision making narrative: patient is an 83-year-old male with generalized weakness and fever over the past week. We will do a sepsis workup at this time. we will replace oxygen as needed. Lab Data Attestation: I reviewed the patient's lab results. 05/18/24 21:11 05/18/24 21:11 Labs: Lab Results 05/18/24 Range/Units 21:11 WBC 5.3 (4.8-10.8) K/mm3 RBC 3.66 L (4.70-6.10) M/mm3 Hgb 12.1 L (12.4-15.3) g/dL Hct 36.7 L (37.0-46.0) % MCV 100.3 (78.0-102.0) fL MCH 33.1 H (27.0-31.0) pg MCHC 33.0 (32-36) g/dL RDW 14.1 (11.6-14.4) % Plt Count 112 L (150-420) K/mm3 MPV 10.4 (8.7-11.0) fl Immature Gran % (Auto) 0.2 H (0.0-0.0) % Neut % (Auto) 85.0 H (50.0-70.0) % Lymph % (Auto) 8.7 L (18.0-42.0) % [place] % (Auto) 5.5 (2.0-11.0) % Eos % (Auto) 0.4 L (1.0-6.0) % Baso % (Auto) 0.2 (0.0-1.0) % Lymph # (Auto) 0.46 L (1.10-4.50) K/mm3 [place] # (Auto) 0.29 (0.10-0.90) K/mm3 Eos # (Auto) 0.02 (0.02-0.50) K/mm3 Baso # (Auto) 0.01 (0.00-0.10) K/mm3 Abs Immat Gran (auto) 0.01 H (0.00-0.00) K/mm3 Absolute Neuts (auto) 4.49 (1.70-7.20) K/mm3 Absolute Nucleated RBC 0.00 (0.00-0.00) K/mm3 Nucleated RBC % 0.0 (0-0.0) % % Immature Plt Fraction 2.5 (1.0-7.0) % Sodium 136 (136-145) mmol/L Potassium 3.6 (3.5-5.1) mmol/L Chloride 99 (98-108) mmol/L Carbon Dioxide 23 (21-32) mmol/L Anion Gap 14 H (4-12) mmol/L BUN 11 (7-18) mg/dL Creatinine 1.17 (0.70-1.30) mg/dL Estim Creat Clear Calc 45 ml/min Estimated GFR 59 (59 - ) Glucose 115 H (70-99) mg/dL Calculated Osmolality 282 L (285-295) mOsm/kg Lactic Acid 1.2 (0.4-2.0) mmol/L Calcium 8.1 L (8.5-10.1) mg/dL Total Bilirubin 0.8 (0.00-1.00) mg/dL AST 27 (15-37) U/L ALT 15 L (16-63) U/L Alkaline Phosphatase 125 H (46-116) U/L Troponin I 30.0 (0.00-60.4) ng/L NT-Pro-B Natriuret Pep 7376 H (0-450) pg/mL Total Protein 6.2 L (6.4-8.2) g/dL Albumin 3.3 L (3.4-5.0) g/dL Urine Color Light yellow (Yellow) Urine Appearance Turbid A (Clear) Urine pH 6.5 (5.0-8.0) Ur Specific [place] 1.020 (1.010-1.020) Urine Protein Trace H (Negative) Urine Glucose (UA) Negative (Negative) Urine Ketones 1+ H (Negative) Ur Blood (Man) 1+ H (Negative) Urine Nitrate Negative (Negative) Urine Bilirubin Negative (Negative) Urine Urobilinogen 2.0 H (0.2-1.0) mg/dL Leukocyte Esterase Rfl 3+ H (Negative) MEET/UL Urine RBC 11-20 H (0-2) /hpf Urine WBC 31-50 H (0-3) /hpf Urine WBC Clumps Present H (None) /hpf Amorphous Sediment Moderate H (None) Urine Bacteria 4+ H (None) /hpf Urine Mucus Heavy H /lpf Influenza A (RT-PCR) Positive A (Negative) Influenza B (RT-PCR) Negative (Negative) RSV (RT-PCR) Negative (Negative) SARS-CoV-2 RNA (RT-PCR) Negative (Negative) Imaging Data Attestation: I personally reviewed and interpreted this imaging study as follows: Radiologist's impression: chest x-ray shows IMPRESSION: Mild pulmonary vascular congestion, without focal infiltrate or effusion. ECG Data EKG #1: Attestation: I personally reviewed and interpreted this ECG as follows: ECG completion date: 05/18/24 ECG completion time: 21:28 EKG Interpretation: normal rate, sinus rhythm, no ectopy, ST depression, normal QRS, normal QT and NL axis Discharge Plan Discharge Clinical Impression: Influenza A, Sepsis secondary to UTI, Hypoxia Patient Disposition: Acute Care Hospital [facility] Condition: Stable Patient Language: [place] Prescriptions: No Action lisinopril 30 mg tablet 30 mg PO DAILY Qty: 30 2RF fluticasone propionate [Flonase Allergy Relief] 50 mcg/actuation spray,suspension 1 spray INTRANASAL PRN PRN (Reason: Allergy Symptoms) Complete Multivitamin Tablet 1 tablet PO DAILY sennosides-docusate sodium [Senokot-S] 8.6-50 mg Tablet 2 tab PO BID Qty: 60 0RF polyethylene glycol 3350 [Miralax] 17 gram Powder In Packet 17 g PO QAM Qty: 30 0RF tamsulosin 0.4 mg capsule 0.4 mg PO HS Qty: 90 1RF Follow-up/Referrals: Nilda,MD Sam [Primary Care Provider] - Time of Disposition: 22:47
--- NOTE | 2024-05-18 20:24 | ECG_ITS ---
Test Date: 2024-05-18 21:25:18 Measurements Intervals [place] Rate: 63 P: 94 MN: 256 QRS: -6 QRSD: 88 T: 15 QT: 419 QTc: 431 Interpretive Statements SINUS RHYTHM WITH FIRST DEGREE AV BLOCK BASELINE WANDER- V4-V6 BORDERLINE ECG No previous ECG available for comparison Electronically Signed On 05-19-2024 06:50:38 SOFTWARE TOOLS BUILD ENGINEER by Pramod Small D.O.
--- OUTSIDE RECORDS SUMMARY | 2024-05-18 20:41 | XMS_ITS | Clinical Summary ---
Author Organization [facility] Address [address] [place] [address] Care Team Providers Care Tube Man Name Role Phone Sam Munguia MD Primary [...] fra cture of hip, left, initial encounter ([facility]) 11/07/2022 History of hemiarthroplasty of right hip 022 Encounter for rehabilitation 07/25/2021 Closed right hip fracture ([facility]) 06/25 Aortic regurgitation 07/08/2021 Tricuspid regurgitation 07/08/2021 [...] place to sleep or slept in a long-term (including now)? No 11/07/2022 Sex and Gender [...] Smith LSW Medical Devices Implanted Type Area Jump Iron Machine Presser Device Identifier Shelf Expiration Date Model / Serial / Lot Cement Simplex Hv W/Gentamicin - [id number] Implanted:Qty: 1 on 10/25/2020 by Rod Logan MD at [facility] Cement Implant Right: Knee [employer] 07/23/2021 6195-1-010 / / [id number] Cement Simplex Hv W/Gentamicin - [id number] Implanted:Qty: 1 on 10/25/2020 by Rod Logan MD at [facility] Cement Implant Right: Knee [employer] 07/23/2021 6195-1-010 / / [id number] Head Depuy Femoral Articuleze 28mm +1.5 - [id number] Implanted:Qty: 1 on 07/20/2021 by Rod Logan MD at [facility] Hip Components Right: Hip [employer] [id number] 09/22/2025 [id number] / / [id number] Kit Avelino Nail Trochanteric 11mm X 180mm - [id number] Implanted:Qty: 1 on 11/07/2022 by Rod Logan MD at [facility] Nail Left: Hip [employer] [id number] 07/24/2027 3125-1180S / / [id number] Screw Bone 10.5mm 105mm Gamma3 Titanium Lag Sterile Trochanter Nail 180 - [id number] Implanted:Qty: 1 on 11/07/2022 by Rod Logan MD at [facility] Screw Left: Hip [employer] [id number] 05/24/2027 3060-0105S / / [id number] Screw Avelino Locking Fully Threaded 5 X 45mm - [id number] Implanted:Qty: 1 on 11/07/2022 by Rod Logan MD at [facility] Screw Left: Hip [employer] [id number] 04/25/2025 1896-5045S / / [id number] Attune Femoral Cruciate Retaining Size 8 Right Cemented Implanted:Qty: 1 on 10/25/2020 by Rod Logan MD at [facility] Right: Knee [employer] [id number] 12/23/2029 1504-00-208 / / [id number] Attune Knee System Tibial Base Rotating Platform Size 7 Cemented Implanted:Qty: 1 on 10/25/2020 by Rod Logan MD at [facility] Right: Knee [employer] [id number] 12/23/2029 1506-80-007 / / [id number] Attune Patella Medialized Dome 35mm Cemented Aox Implanted:Qty: 1 on 10/25/2020 by Rod Logan MD at [facility] Right: Knee [employer]PUY [id number] 12/23/2024 1518-20-035 / / [id number] Attune Tibial Insert Rotating Platform Cruciate Retaining Size 8 7mm Aox Implanted:Qty: 1 on 10/25/2020 by Rod Logan MD at [facility] Right: Knee DEPUY [id number] 03/25/2025 1516-30-807 / / [id number] Femoral Stem 03/08 Taper Actis Duofix Hip Prosthesis Cementless Size 10 Standard Collar Implanted:Qty: 1 on 07/20/2021 by Rod Logan MD at [facility] Right: Hip [employer] [id number] 06/23/2030 1010-11-100 / / [id number] Self Centering Bi-Polar Head 28mm Id 55mm Implanted:Qty: 1 on 07/20/2021 by Rod Logan MD at [facility] Right: Hip [employer] [id number] 12/23/2024 1035-55-000 / / [id number] Explanted Type Area Jump Iron Machine Presser Device Identifier Shelf Expiration Date Model / Serial / Lot Drill Bit Gamma3 System Avelino 4.2 X 300mm - [id number] Explanted:Qty: 1 on 11/07/2022 by Rod Logan MD at [facility] Drill Left: Hip [employer] [id number] 05/24/2027 2467-9606 S / / [id number] Wire K [place] Gamma 3 3.5w324ps - [id number] Explanted:Qty: 1 on 11/07/2022 at [facility] Wire Left: Hip [employer] [id number] 06/24/2027 9800-2423 S / / [id number] Wire K Avelino Gamma 3 3.2n243sc - [id number] Explanted:Qty: 1 on 11/07/2022 by Rod Logan MD at [facility] Wire Left: Hip [employer] [id number] 06/24/2027 5284-9063 S / / [id number] Insurance HUMAN Advance Directives * Full Code [...] 6:51 AM 10/26/2020 6:02 PM Care Teams Tube Man Relationship Specialty Start Date End Date Sam Munguia MD [address] [place] [id number] PCP - General FAMILY PRACTICE 10/06/20
--- OUTSIDE RECORDS SUMMARY | 2024-05-18 20:41 | XMS_ITS | CONTINUITY OF CARE DOCUMENT ---
Author Name moises de leon Address Unknown Organization [facility] Address [address] [place] [address] Phone [phone] Care Team Providers Care Sales Driver Name Role Phone Toma PARIS, Eleanor Thomas Unavailable KIERRA HENAO MD Unavailable [phone] KIERRA HENAO MD Unavailable [phone] PROBLEMS Condition Status Date Provider Notes Cardiology examination active Eleanor greenberg MD Pre op cardiovascular exam active Eleanor Chua MD PVC's active Eleanor Chua MD HTN essential active Eleanor Chua MD Tobacco abuse- hx of active Eleanor yap MD Abnormal electrocardiogram active Eleanor Chua MD Aortic regurgitation active Eleanor yap MD Tricuspid regurgitation active Eleanor boone MD Aortic regurgitation active Eleanor yap MD Tricuspid regurgitation active Eleanor boone MD Aortic root dilatation active Eleanor greenberg MD ENCOUNTERS Date Type Provider Location Encounter Diag nosis - In-person encounter Office Visit Eleanor Chua MD [facility] Aortic regurgitationTricuspid regurgitationAortic regurgitationTricuspid regurgitationAortic root dilatation - In-person encounter Office Visit Eleanor Chua MD [facility] Cardiology examinationPre op cardiovascular examPVC'sHTN essentialTobacco [...] Exercise counseling yes Mya Kang Underweight yes Eleanro yap MD social history E&M S moking [...] Payer name Policy type / Coverage type [place] red democrat ID Ch[employer] [id number] ADVANCE DIRECTIVES Name Date DISCUSSED - NO DECISION MADE TREATMENT PLAN Date Name Performer [id number],S,4 .22 mm on echo at sinus valsalva. Probably normal for his body He is 6'2 Eleanor Chua MD [id number],C,Mild TR on ec ho PAP 30 Eleanor Chua MD [id number],C,MIld AR on ec ho Eleanor Chua MD [id number],C,Still has PVC is on EKG Eleanor Chua MD [id number],C,S ummary 1 . Complete two-dimensional, color flow [...] at 4.2 c m. Eleanor Chua MD [id number],C,C ONCLUSIONS: 1 . Normal sinus rhythm. Ventricular [...] enhacne medical management recommended Eleanor Chua MD [id number],C,R ecalls an episode were his BP dropped [...]
[2024-05-18] MEDS: SODIUM CHLORIDE 0.9% IV 1,000 ML 999 ML IV CONT (21:26)
[2024-05-18] MEDS: PIPERACILLN/TAZ 3.375GM/NS50ML 3.375 GM/50 ML BAG IVPB (21:27)
[2024-05-18 21:29] LABS: Basophils Absolute Auto 0.01 K/mm3 (0.00-0.10); Basophils Percent Auto 0.2 % (0.0-1.0); Eosinophils Absolute Auto 0.02 K/mm3 (0.02-0.50); Eosinophils Percent Auto 0.4 % (1.0-6.0); Hematocrit 36.7 % (37.0-46.0); Hemoglobin 12.1 g/dL (12.4-15.3); Immature Granulocyte Absolute 0.01 K/mm3 (0.00-0.00); Immature Granulocyte Percent A 0.2 % (0.0-0.0); Immature Platelet Fraction Pct 2.5 % (1.0-7.0); Lymphocytes Absolute Auto 0.46 K/mm3 (1.10-4.50); Lymphocytes Percent Auto 8.7 % (18.0-42.0); Mean Corpuscular Hemoglobin 33.1 pg (27.0-31.0); Mean Corpuscular Volume 100.3 fL (78.0-102.0); Mean Platelet Volume 10.4 fl (8.7-11.0); Monocytes Absolute Auto 0.29 K/mm3 (0.10-0.90); Monocytes Percent Auto 5.5 % (2.0-11.0); Neutrophils Absolute Auto 4.49 K/mm3 (1.70-7.20); Platelet Count Result 112 K/mm3 (150-420); Red Blood Count 3.66 M/mm3 (4.70-6.10); Red Cell Distribution Width 14.1 % (11.6-14.4); White Blood Count 5.3 K/mm3 (4.8-10.8)
[2024-05-18 22:16] LABS: SARS-CoV-2 RNA PCR Negative (Negative)
[2024-05-18 22:17] LABS: Influenza A QL RT-PCR Positive (Negative); Influenza B QL RT-PCR Negative (Negative); RSV RNA, RT-PCR Negative (Negative)
[2024-05-18 22:18] LABS: Lactic Acid Reflex 1.2 mmol/L (0.4-2.0)
[2024-05-18 22:22] LABS: Alanine Aminotransferase 15 U/L (16-63); Albumin Level 3.3 g/dL (3.4-5.0); Alkaline Phosphatase 125 U/L (46-116); Anion Gap 14 mmol/L (4-12); Aspartate Amino Transferase 27 U/L (15-37); Bilirubin,Total 0.8 mg/dL (0.00-1.00); Blood Urea Nitrogen 11 mg/dL (7-18); Calcium 8.1 mg/dL (8.5-10.1); Carbon Dioxide 23 mmol/L (21-32); Chloride 99 mmol/L (98-108); Estimated CRCL calculation 45 ml/min; Estimated Glomerular Filt Rate 59; Glucose 115 mg/dL (70-99); NT Pro B Type Natriuretic Pept 7376 pg/mL (0-450); Osmolality Calculated 282 mOsm/kg (285-295); Potassium 3.6 mmol/L (3.5-5.1); Sodium 136 mmol/L (136-145); Total Protein 6.2 g/dL (6.4-8.2)
[2024-05-18 22:23] LABS: Add Urine Microscopic? YES; Bilirubin Urine Negative (Negative); Blood Urine 1+ (Negative); Color Urine Light Yellow (Yellow); Glucose Urine UA Negative (Negative); Ketones Urine 1+ (Negative); Leukocyte Esterase Ur 3+ LEU/UL (Negative); Nitrate Urine Negative (Negative); Protein Urine Trace (Negative); pH Urine 6.5 (5.0-8.0)
[2024-05-18 22:29] LABS: Amorphous Sediment Urine Moderate; Appearance Urine Turbid (Clear); Bacteria Urine 4+ /hpf; WBC Clumps Urine Present /hpf; WBC Urine 31-50 /hpf (0-3)
[2024-05-18 22:30] LABS: Mucus Urine Heavy /lpf
[2024-05-18] MEDS: FUROSEMIDE INJ 20 MG/2 ML VIAL 10 MG IV PUSH (23:17)
--- NOTE | 2024-05-18 23:21 | PC.NURSE ---
Discussed POC w/ pt and will admit for 23 hr obs. Call placed to floor and spoke to scrap charger Holly. Will call back w/ bed assignment.
--- NOTE | 2024-05-18 23:29 | PC.NURSE ---
Call back from NURIS Sandoval, will go to Rm [phone]
[2024-05-19] VITALS (9 sets, daily range): BP systolic 135–184; BP diastolic 63–85; PULSE 47–56; RESP 16–20; TEMP 36–36.7; O2SAT 93–98
[2024-05-19] MEDS: TAMSULOSIN HCL 0.4 MG CAPSULE PO ×2 (00:06→21:52)
--- NOTE | 2024-05-19 00:10 | PC.NURSE ---
Pt to floor for hospitalist services. Pt is alert and oriented x4 and required assist of two to get him into bed. Lung sounds are diminished bilaterally and pt has a non productive cough. Respirations are even and unlabored and SAO2 is 93% with oxygen on at 2 liters per nasal cannula. Pt doesnt voice any c/o shortness of breath.
--- NOTE | 2024-05-19 02:15 | PC.NURSE ---
Pt asleep and no signs of respiratory distress noted.
[2024-05-19] MEDS: PIPERACILLN/TAZ 3.375GM/NS50ML 3.375 GM/50 ML BAG IVPB ×2 (04:03→10:09)
--- NOTE | 2024-05-19 04:05 | PC.NURSE ---
IV antibiotic infusing as ordered.
[2024-05-19 06:26] LABS: Basophils Absolute Auto 0.01 K/mm3 (0.00-0.10); Basophils Percent Auto 0.1 % (0.0-1.0); Eosinophils Absolute Auto 0.03 K/mm3 (0.02-0.50); Eosinophils Percent Auto 0.4 % (1.0-6.0); Hematocrit 31.6 % (37.0-46.0); Hemoglobin 10.5 g/dL (12.4-15.3); Immature Granulocyte Absolute 0.03 K/mm3 (0.00-0.00); Immature Granulocyte Percent A 0.4 % (0.0-0.0); Lymphocytes Absolute Auto 0.66 K/mm3 (1.10-4.50); Lymphocytes Percent Auto 9.9 % (18.0-42.0); Mean Corpuscular HGB Conc 33.2 g/dL (32-36); Mean Corpuscular Hemoglobin 33.3 pg (27.0-31.0); Mean Corpuscular Volume 100.3 fL (78.0-102.0); Mean Platelet Volume 10.3 fl (8.7-11.0); Monocytes Absolute Auto 0.36 K/mm3 (0.10-0.90); Monocytes Percent Auto 5.4 % (2.0-11.0); Neutrophils Percent Auto 83.8 % (50.0-70.0); Platelet Count Result 104 K/mm3 (150-420); Red Blood Count 3.15 M/mm3 (4.70-6.10); White Blood Count 6.7 K/mm3 (4.8-10.8)
[2024-05-19 06:46] LABS: Alanine Aminotransferase 11 U/L (16-63); Albumin Level 2.5 g/dL (3.4-5.0); Alkaline Phosphatase 102 U/L (46-116); Anion Gap 10 mmol/L (4-12); Aspartate Amino Transferase 21 U/L (15-37); Bilirubin,Total 0.6 mg/dL (0.00-1.00); Blood Urea Nitrogen 11 mg/dL (7-18); Calcium 7.5 mg/dL (8.5-10.1); Carbon Dioxide 27 mmol/L (21-32); Chloride 100 mmol/L (98-108); Estimated CRCL calculation 48 ml/min; Estimated Glomerular Filt Rate > 60; Glucose 143 mg/dL (70-99); Osmolality Calculated 285 mOsm/kg (285-295); Potassium 3.6 mmol/L (3.5-5.1); Sodium 137 mmol/L (136-145); Total Protein 5.2 g/dL (6.4-8.2)
[2024-05-19] MEDS: ENOXAPARIN 40 MG/0.4 ML SYRINGE SUB-Q (10:05)
[2024-05-19] MEDS: FUROSEMIDE INJ 20 MG/2 ML VIAL 10 MG IV PUSH (10:06)
[2024-05-19] MEDS: lisinopriL 10 MG TABLET 30 MG PO (10:08)
--- NOTE | 2024-05-19 10:45 | P.HP_ITS ---
H&P: HPI History of Present Illness Date/Time: 05/19/24 10:45 Chief Complaint: shortness a breath /dyspnea Narrative: This is an 83 year old male with a significant past medical history of hypertension, sleep apnea, BPH, former smoker quit in 1968 who presented to the hospital with complaints of acute respiratory failure with hypoxia requiring oxygen. Work up in the hospital included A chest x-ray which showed mild pulmonary vascular congestion without focal infiltrate or effusion. Initial labs showed a normal white blood cell count of 5.3, hemoglobin 12.1, platelet count 112, anion gap of 14, blood sugars ranging 115-143, alkaline phosphate 125, proBNP 7376. A UA was obtained which showed turbid urine appearance, trace urine protein, 1+ urine ketones, 1+ urine blood, 2.0 urine urobilinogen, 3+ evy kocytes, 11-20 urine RBC, 31-50 urine WBC, moderate amorphous sediment, 4+ bacteria, heavy urine mucus. Respiratory panel was positive for influenza A. Blood and urine cultures were obtained and pending. EKG shown sinus rhythm with first-degree AV block with a rate of 63, QTC 431. Patient was started on Zosyn, given IV fluids, Lasix while in the ED. 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 jones H/O left inguinal hernia repair 2011the patient had I and D of a hematoma postoperatively History of right inguinal hernia repair 01/20/19 History of colon resection laparoscopic sigmoid colon resection H/O repair of rotator cuff Family History Family History Father Family history of malignant neoplasm of urinary bladder Malignant neoplasm of prostate Cancer Sibling Cancer Diabetes mellitus Social History Social History Social History: the patient is and lives with his . However his daughter sandro is his durable power deputy county attorney for healthcare. The patient desires to be a full code. The patient is retired from the [employer] He has 1 son and 1 daughter. Patient quit smoking in 1968. No marijuana or illicit drugs. Smoking packs per day: 1 Smoking cigarettes per day: 20.0 Years smoked: 25 Smoking pack-years: 25.00 Smoking status: Former smoker Tobacco type: cigarettes Second hand tobacco smoke exposure: Yes Smoking end date: 03/26/68 Additional smoking assessment comments: DENIES ANY FORM OF TOBACCO/NICOTINE USE Alcohol intake: current Drinks per week: 28 Alcohol use details: BEER Substance use: never Substance use type: does not use Living arrangements: alone Occupation/Education: retired Gender identity (if verbalized by the patient): Male Sexual Orientation (if Verbalized by the Patient): Straight or Heterosexual Spiritual care concerns: No Meds Home Medications and Allergies Home Medications ?Medication ?Instructions ?Recorded ?Confirmed ?Type fluticasone propionate 50 1 spray intranasal PRN PRN Allergy 12/19/19 05/18/24 History mcg/actuation nasal Symptoms spray,suspension (Flonase Allergy Relief) multivitamin,xr-woza-nmphykrs 1 tablet PO DAILY 12/19/19 05/18/24 History (Complete Multivitamin tablet) polyethylene glycol 3350 17 gram 17 g PO QAM #30 ea 01/08/20 05/18/24 Rx oral powder packet (Miralax) sennosides 8.6 mg-docusate sodium 2 tab PO BID #60 tabs 01/08/20 05/18/24 Rx 50 mg tablet (Senokot-S) tamsulosin 0.4 mg capsule 0.4 mg PO HS #90 caps 02/02/20 05/18/24 Rx lisinopril 30 mg tablet 30 mg PO DAILY #30 tabs 06/30/20 05/18/24 Rx Allergies Allergy/AdvReac Type Severity Reaction Status Date / Time No Known Allergies Allergy Verified 08/13/20 07:42 Vital Signs Vital Signs - 24 hr 05/18/24 20:05 05/18/24 20:05 05/18/24 20:05 Temperature 100.8 F H Pulse Rate 65 67 Respiratory Rate 20 Blood Pressure 159/94 H Pulse Oximetry 89 L 93 Oxygen Delivery Room Air Nasal Cannula Oxygen Flow Rate 3 05/18/24 20:24 05/18/24 21:04 05/18/24 21:16 Temperature Pulse Rate 66 66 71 Respiratory Rate 20 22 H 17 Blood Pressure 150/80 H Pulse Oximetry 93 92 92 Oxygen Delivery Nasal Cannula Oxygen Flow Rate 3 05/18/24 21:33 05/18/24 21:34 05/18/24 21:45 Temperature Pulse Rate 65 61 68 Respiratory Rate 20 20 20 Blood Pressure 163/70 H Pulse Oximetry 92 93 94 Oxygen Delivery Oxygen Flow Rate 05/18/24 21:46 05/18/24 22:00 05/18/24 22:01 Temperature Pulse Rate 65 60 61 Respiratory Rate 19 20 19 Blood Pressure 161/76 H 167/78 H Pulse Oximetry 93 95 94 Oxygen Delivery Oxygen Flow Rate 05/18/24 22:15 05/18/24 22:16 05/18/24 22:30 Temperature Pulse Rate 63 60 60 Respiratory Rate 20 20 17 Blood Pressure 158/82 H Pulse Oximetry 93 94 93 Oxygen Delivery Oxygen Flow Rate 05/18/24 22:31 05/18/24 22:45 05/18/24 22:46 Temperature Pulse Rate 61 58 L 59 L Respiratory Rate 18 18 19 Blood Pressure 158/72 H 142/75 H Pulse Oximetry 92 92 92 Oxygen Delivery Oxygen Flow Rate 05/18/24 23:00 05/18/24 23:01 05/18/24 23:13 Temperature Pulse Rate 60 60 53 L Respiratory Rate 15 17 20 Blood Pressure 159/77 H Pulse Oximetry 92 91 93 Oxygen Delivery Nasal Cannula Oxygen Flow Rate 2 05/18/24 23:15 05/18/24 23:16 05/18/24 23:31 Temperature Pulse Rate 66 63 56 L Respiratory Rate 18 14 17 Blood Pressure 178/85 H 170/74 H Pulse Oximetry 90 93 91 Oxygen Delivery Oxygen Flow Rate 05/18/24 23:52 05/19/24 00:00 05/19/24 04:00 Temperature 100.5 F H 97.6 F Pulse Rate 60 53 L 50 L Respiratory Rate 20 20 Blood Pressure 168/75 H 178/83 H Pulse Oximetry 92 93 Oxygen Delivery Nasal Cannula Nasal Cannula Oxygen Flow Rate 3 2 05/19/24 04:00 05/19/24 08:10 Temperature 96.8 F L 97.0 F L Pulse Rate 50 L 48 L Respiratory Rate 20 20 Blood Pressure 153/76 H 184/85 H Pulse Oximetry 98 98 Oxygen Delivery Nasal Cannula Nasal Cannula Oxygen Flow Rate 2 2 Exam Narrative: General: In no acute distress, well nourished Head: atraumatic, no encephalopathy Eyes: EOMI, PERRLA, sclera clear ENT: moist mucous membranes, nasal passages clear Neck: supple, no JVD, no adenopathy, trachea midline Cardiac: Normal S1 and S2. No murmur, gallops or friction rubs, peripheral puls es intact. Respiratory: Lungs clear to auscultation, no adventitious lung sounds Gastrointestinal: soft, non-distended, non-tender, normoactive bowel sounds. : voiding without difficulty. Extremities: moves all extremities well, no edema, good ROM, strength 5/5 Skin: clean, dry, intact. No wounds or lesions. Neuro: Alert and oriented x4, cranial nerves intact, no neuro deficits. Psych: normal mood, normal affect, interactive H&P: Results Labs Labs: Short CBC 05/18/24 05/19/24 Range/Units 21:11 06:00 WBC 5.3 6.7 (4.8-10.8) K/mm3 Hgb 12.1 L 10.5 L (12.4-15.3) g/dL Hct 36.7 L 31.6 L (37.0-46.0) % Plt Count 112 L 104 L (150-420) K/mm3 BMP 05/18/24 05/19/24 21:11 06:00 Sodium 136 137 Potassium 3.6 3.6 Chloride 99 100 Carbon Dioxide 23 27 BUN 11 11 Creatinine 1.17 1.10 Glucose 115 H 143 H Calcium 8.1 L 7.5 L Cardiac Enzymes 05/18/24 Range/Units 21:11 Troponin I 30.0 (0.00-60.4) ng/L Liver Function 05/18/24 05/19/24 Range/Units 21:11 06:00 Total Bilirubin 0.8 0.6 (0.00-1.00) mg/dL AST 27 21 (15-37) U/L ALT 15 L 11 L (16-63) U/L Alkaline Phosphatase 125 H 102 (46-116) U/L Albumin 3.3 L 2.5 L (3.4-5.0) g/dL Urine 05/18/24 Range/Units 21:11 Urine Color Light yellow (Yellow) Urine Appearance Turbid A (Clear) Urine pH 6.5 (5.0-8.0) Ur Specific [place] 1.020 (1.010-1.020) Urine Protein Trace H (Negative) Urine Glucose (UA) Negative (Negative) Imaging Chest x-ray: Radiologist's impression: CHEST RADIOGRAPH CLINICAL HISTORY: fever, WEAKNESS, COUGH, SHORTNESS OF BREATH . COMPARISON: 12/19/2019 TECHNIQUE: Single portable view of the chest. FINDINGS The cardiomediastinal silhouette is unremarkable. Increased interstitial markings are identified bilaterally, findings suggesting mild pulmonary vascular congestion. The lungs are otherwise clear. IMPRESSION: Mild pulmonary vascular congestion, without focal infiltrate or effusion. Reviewed, dictated and finalized at location [facility] Assessment and Plan Assessment and plan (1) Sepsis: Code(s): A41.9 - Sepsis, unspecified organism Status: Acute Assessment and Plan: * UA showing turbid urine appearance, trace urine protein, 1+ urine ketone, 1+ urine blood, 2.0 urine urobilinogen, 3+ leukocyte, 11-20 urine RBC, 31-50 urine WBC, moderate amorphous sediment, 4+ urine bacteria, heavy urine mucus * urine and blood culture obtained and pending * blood and urine cultures obtained and pending * respiratory panel positive for influenza A * chest x-ray showing mild pulmonary vascular congestion without focal infiltrate or effusion * white blood cell count within normal limits at 5.3, lactic acid was normal at 1.2. * Initially meeting sepsis criteria with a temp of 100.8?, hypoxia at 89%, tachypnea with a respiratory rate of 22, suspected urinary tract infection, positive for influenza A * patient was given 1 L of IV fluids while in the ED with improvement in his vital signs and temp * patient was given dose of Zosyn while in the ED however we will switch to Rocephin * will check an MRSA (2) Acute hypoxic respiratory failure: Code(s): J96.01 - Acute respiratory failure with hypoxia Status: Acute Assessment and Plan: secondary to influenza a verses CHF exacerbation * chest x-ray showing mild pulmonary vascular congestion without focal infiltrate or effusion * respiratory panel positive for influenza A * currently on 2 L nasal cannula * continue to wean O2 for sat greater than 92% * proBNP 7376 (3) Influenza A: Code(s): J10.1 - Influenza due to other identified influenza virus with other respiratory manifestations Status: Acute Assessment and Plan: * respiratory panel positive for influenza A * patient's symptoms started last Sunday and he is out of the window for Tamiflu * continue with supportive care (4) Acute UTI: Code(s): N39.0 - Urinary tract infection, site not specified Status: Acute Assessment and Plan: * UA showing turbid urine appearance, trace urine protein, 1+ urine ketone, 1+ urine blood, 2.0 urine urobilinogen, 3+ leukocyte, 11-20 urine RBC, 31-50 urine WBC, moderate amorphous sediment, 4+ urine bacteria, heavy urine mucus * urine and blood culture obtained and pending * continue Rocephin (5) CHF (congestive heart failure): Code(s): I50.9 - Heart failure, unspecified Status: Acute Assessment and Plan: * proBNP 7376 * chest x-ray showing mild pulmonary vascular congestion without focal infiltrate or effusion * patient was given 10 mg of IV push Lasix while in the ED * last echocardiogram was on 06/14/2021 which shown normal LV systolic function with an estimated EF of 50-55%, grade 1 diastolic dysfunction (6) Essential (primary) hypertension: Code(s): I10 - Essential (primary) hypertension Status: Chronic Assessment and Plan: * blood pressures ranging 153/76 to 184/85 * continue lisinopril Quality VTE Prophylaxis VTE prophylaxis: pharmacologic ordered Hospitalist MIPS Advance Care Plan I have confirmed that the patient's Advanced Care Plan is present, code status is documented, or surrogate decision maker is listed in patient medical record.: Yes Medication Reconciliation I have utilized all available resources to obtain, update and review the patients current medications (includes all prescriptions, OTC, herbals, cannabis, and nutritional supplements).: Yes
[2024-05-19] MEDS: DOXYCYCLINE HYCLATE 100 MG TABLET PO (12:28)
[2024-05-19 14:36] LABS: MRSA (PCR) NOT DETECTED (NOT DETECTE)
[2024-05-19] MEDS: SENNA/DOCUSATE SODIUM TABLET 2 TAB PO (16:51)
[2024-05-20] VITALS: BP 145/53; PULSE 52; RESP 16; TEMP 36; O2SAT 92
[2024-05-20 04:00] VITALS: BP 163/76; PULSE 49; PULSE 52; RESP 20; TEMP 36.1; O2SAT 94
[2024-05-20 07:58] VITALS: BP 187/92; PULSE 55; RESP 16; TEMP 36.3; O2SAT 95
[2024-05-20 08:00] VITALS: PULSE 55; RESP 18; O2SAT 93
[2024-05-20] MEDS: THERAPEUTIC MULTIVITAMINS/MINERALS TAB (*BKC) 1 TABLET PO (08:59)
[2024-05-20] MEDS: ENOXAPARIN 40 MG/0.4 ML SYRINGE SUB-Q (08:59)
[2024-05-20] MEDS: lisinopriL 10 MG TABLET 30 MG PO (08:59)
--- NOTE | 2024-05-20 09:12 | P.PNIM_ITS ---
Progress Note: A&P Assessment and Plan (1) Sepsis: Code(s): A41.9 - Sepsis, unspecified organism Status: Acute Assessment and Plan: * UA showing turbid urine appearance, trace urine protein, 1+ urine ketone, 1+ urine blood, 2.0 urine urobilinogen, 3+ leukocyte, 11-20 urine RBC, 31-50 urine WBC, moderate amorphous sediment, 4+ urine bacteria, heavy urine mucus * urine and blood culture obtained and pending * blood and urine cultures obtained and pending * respiratory panel positive for influenza A * chest x-ray showing mild pulmonary vascular congestion without focal infiltrate or effusion * white blood cell count within normal limits at 5.3, lactic acid was normal at 1.2. * Initially meeting sepsis criteria with a temp of 100.8?, hypoxia at 89%, tachypnea with a respiratory rate of 22, suspected urinary tract infection, positive for influenza A * patient was given 1 L of IV fluids while in the ED with improvement in his vital signs and temp * patient was given dose of Zosyn while in the ED however we will switch to Rocephin * will check an MRSA (2) Acute hypoxic respiratory failure: Code(s): J96.01 - Acute respiratory failure with hypoxia Status: Acute Assessment and Plan: secondary to influenza a verses CHF exacerbation * chest x-ray showing mild pulmonary vascular congestion without focal infiltrate or effusion * respiratory panel positive for influenza A * currently on 2 L nasal cannula * continue to wean O2 for sat greater than 92% * proBNP 7376 (3) Influenza A: Code(s): J10.1 - Influenza due to other identified influenza virus with other respiratory manifestations Status: Acute Assessment and Plan: * respiratory panel positive for influenza A * patient's symptoms started last Sunday and he is out of the window for Tamiflu * continue with supportive care (4) Acute UTI: Code(s): N39.0 - Urinary tract infection, site not specified Status: Acute Assessment and Plan: * UA showing turbid urine appearance, trace urine protein, 1+ urine ketone, 1+ urine blood, 2.0 urine urobilinogen, 3+ leukocyte, 11-20 urine RBC, 31-50 urine WBC, moderate amorphous sediment, 4+ urine bacteria, heavy urine mucus * urine and blood culture obtained and pending * continue Rocephin (5) CHF (congestive heart failure): Code(s): I50.9 - Heart failure, unspecified Status: Acute Assessment and Plan: * proBNP 7376 * chest x-ray showing mild pulmonary vascular congestion without focal i nfiltrate or effusion * patient was given 10 mg of IV push Lasix while in the ED * last echocardiogram was on 06/14/2021 which shown normal LV systolic function with an estimated EF of 50-55%, grade 1 diastolic dysfunction (6) Essential (primary) hypertension: Code(s): I10 - Essential (primary) hypertension Status: Chronic Assessment and Plan: * blood pressures ranging 153/76 to 184/85 * continue lisinopril Subjective Date/time seen: 05/20/24 09:12 Interval history: Interval history: This is an 83 year old male with a significant past medical history of hypertension, sleep apnea, BPH, former smoker quit in 1968 who presented to the hospital with complaints of acute respiratory failure with hypoxia requiring oxygen. Work up in the hospital included A chest x-ray which showed mild pulmonary vascular congestion without focal infiltrate or effusion. Initial labs showed a normal white blood cell count of 5.3, hemoglobin 12.1, platelet count 112, anion gap of 14, blood sugars ranging 115-143, alkaline phosphate 125, proBNP 7376. A UA was obtained which showed turbid urine appearance, trace urine protein, 1+ urine ketones, 1+ urine blood, 2.0 urine urobilinogen, 3+ leukocytes, 11-20 urine RBC, 31-50 urine WBC, moderate amorphous sediment, 4+ bacteria, heavy urine mucus. Respiratory panel was positive for influenza A. Blood and urine cultures were obtained and pending. EKG shown sinus rhythm with first-degree AV block with a rate of 63, QTC 431. Patient was started on Zosyn, given IV fluids, Lasix while in the ED. Subjective: Patient denies any new complaints today. Labs and cultures reviewed. Review of Systems Review of Systems: All systems reviewed & are unremarkable except as noted in HPI and below Exam Narrative: General: In no acute distress, well nourished Cardiac: Normal S1 and S2. No murmur, gallops or friction rubs, peripheral pulses intact. Respiratory: Lungs clear to auscultation, no adventitious lung sounds, currently on room air Gastrointestinal: soft, non-distended, non-tender, normoactive bowel sounds. : voiding without difficulty. Neuro: Alert and oriented x4 Objective Data Vital Signs Vital Signs: Vital Signs - 24 hr 05/19/24 12:00 05/19/24 12:00 05/19/24 12:06 Temperature 98.0 F 98 F Pulse Rate 50 L 50 L 50 L Respiratory Rate 18 18 Blood Pressure 144/68 H 144/68 H Pulse Oximetry 97 97 Oxygen Delivery Room Air Room Air 05/19/24 16:00 05/19/24 16:00 05/19/24 20:00 Temperature 96.9 F L Pulse Rate 54 L 54 L 56 L Respiratory Rate 16 Blood Pressure 135/66 Pulse Oximetry 94 Oxygen Delivery Room Air 05/19/24 20:00 05/20/24 00:00 05/20/24 00:00 Temperature 96.9 F L 96.8 F L Pulse Rate 54 L 52 L 52 L Respiratory Rate 16 16 Blood Pressure 156/63 H 145/53 H Pulse Oximetry 94 92 Oxygen Delivery Room Air Room Air 05/20/24 04:00 05/20/24 04:00 05/20/24 07:58 Temperature 96.9 F L 97.4 F L Pulse Rate 49 L 52 L 55 L Respiratory Rate 20 16 Blood Pressure 163/76 H 187/92 H Pulse Oximetry 94 95 Oxygen Delivery Room Air Room Air 05/20/24 08:00 05/20/24 08:00 Temperature Pulse Rate 55 L 55 L Respiratory Rate 18 Blood Pressure Pulse Oximetry 93 Oxygen Delivery Room Air Intake/Output Intake/Output: Intake & Output 05/17/24 05/18/24 05/19/24 05/20/24 23:59 23:59 23:59 23:59 Intake Total 1050 1150 490 Output Total 775 500 Balance 1050 375 -10 Meds/Results Medications: Active Medications Generic Name Dose Route Start Last Admin Trade Name Freq PRN Reason Stop Dose Admin Acetaminophen 650 mg 05/18/24 23:12 Acetaminophen 325 Mg Tablet PO Q4H PRN Mild Pain (1-3) or Fever Enoxaparin Sodium 40 mg 05/19/24 09:00 05/20/24 08:59 Enoxaparin 40 Mg/0.4 Ml Syringe SUB-Q 40 mg DAILY ALBARO Administration Fluticasone Propionate 1 spray 05/19/24 14:07 Fluticasone Propionate 0.05% Na Spr 16 Gm Btl (*Bkc) NASAL BID PRN Allergy Symptoms Ceftriaxone Sodium 1 gm in 50 mls @ 100 mls/hr 05/19/24 11:00 05/19/24 13:06 Rocephin 1 Gm/Ns 50 Ml IVPB Infused Q24H ALBARO Infusion Lisinopril 30 mg 05/19/24 09:00 05/20/24 08:59 Lisinopril 10 Mg Tablet PO 30 mg DAILY ALBARO Administration Multivitamins/Calcium 1 tablet 05/20/24 09:00 05/20/24 08:59 Therapeutic Multivitamins/Minerals Tab (*Bkc) PO 1 tablet DAILY ALBARO Administration Ondansetron HCl 4 mg 05/18/24 23:12 Ondansetron Inj 4 Mg/2 Ml Vial IV PUSH Q6H PRN Nausea And Vomiting Perflutren Lipid Microsphere 0 ml 05/19/24 13:34 Perflutren Lipid Microspheres 1.5 Ml Vial Diluted To 10 Ml Total Volume IV PUSH 05/22/24 13:34 ONCE PRN adequate visualization Protocol Polyethylene Glycol 17 gm 05/19/24 09:00 05/20/24 09:00 Polyethylene Glycol 3350 17 Gm Powd.Pack PO Not Given QAM ALBARO Senna/Docusate Sodium 2 tab 05/19/24 09:00 05/20/24 09:00 Senna/Docusate Sodium Tablet PO Not Given BID ALBARO Tamsulosin HCl 0.4 mg 05/19/24 21:00 05/19/24 21:52 Tamsulosin Hcl 0.4 Mg Capsule PO 0.4 mg HS ALBARO Administration Radiology Results: ITS Impressions Chest X-Ray 05/18/24 20:46 IMPRESSION: Mild pulmonary vascular congestion, without focal infiltrate or effusion. Labs Labs: Laboratory Results - last 24 hr 05/19/24 12:03 Nasal MRSA (PCR) Not detected Quality VTE Prophylaxis VTE prophylaxis: pharmacologic ordered
[2024-05-20 09:37] LABS: Eosinophils Absolute Auto 0.09 K/mm3 (0.02-0.50); Eosinophils Percent Auto 1.5 % (1.0-6.0); Hemoglobin 12.3 g/dL (12.4-15.3); Immature Granulocyte Absolute 0.02 K/mm3 (0.00-0.00); Immature Granulocyte Percent A 0.3 % (0.0-0.0); Lymphocytes Absolute Auto 1.16 K/mm3 (1.10-4.50); Lymphocytes Percent Auto 18.7 % (18.0-42.0); Mean Corpuscular HGB Conc 33.2 g/dL (32-36); Mean Corpuscular Hemoglobin 33.3 pg (27.0-31.0); Mean Corpuscular Volume 100.3 fL (78.0-102.0); Monocytes Absolute Auto 0.44 K/mm3 (0.10-0.90); Monocytes Percent Auto 7.1 % (2.0-11.0); Neutrophils Absolute Auto 4.48 K/mm3 (1.70-7.20); Neutrophils Percent Auto 72.4 % (50.0-70.0); Platelet Count Result 124 K/mm3 (150-420); Red Blood Count 3.69 M/mm3 (4.70-6.10); Red Cell Distribution Width 14.2 % (11.6-14.4); White Blood Count 6.2 K/mm3 (4.8-10.8)
[2024-05-20 10:02] LABS: Alanine Aminotransferase 16 U/L (16-63); Albumin Level 2.7 g/dL (3.4-5.0); Alkaline Phosphatase 100 U/L (46-116); Anion Gap 8 mmol/L (4-12); Aspartate Amino Transferase 26 U/L (15-37); Bilirubin,Total 0.5 mg/dL (0.00-1.00); Blood Urea Nitrogen 19 mg/dL (7-18); Calcium 7.7 mg/dL (8.5-10.1); Carbon Dioxide 29 mmol/L (21-32); Chloride 99 mmol/L (98-108); Estimated CRCL calculation 41 ml/min; Estimated Glomerular Filt Rate 52; Glucose 115 mg/dL (70-99); Osmolality Calculated 285 mOsm/kg (285-295); Potassium 3.2 mmol/L (3.5-5.1); Sodium 136 mmol/L (136-145); Total Protein 5.7 g/dL (6.4-8.2)
--- NOTE | 2024-05-20 11:42 | PM.DS ---
DS: Admitting Diagnosis Discharge Date 05/20/24 Admitting Diagnosis Sepsis acute hypoxic respiratory failure influenza a acute UTI CHF essential hypertension DS: Discharge Diagnosis Discharge Diagnosis (1) Sepsis: Code(s): A41.9 - Sepsis, unspecified organism Status: Acute (2) Acute hypoxic respiratory failure: Code(s): J96.01 - Acute respiratory failure with hypoxia Status: Acute (3) Influenza A: Code(s): J10.1 - Influenza due to other identified influenza virus with other respiratory manifestations Status: Acute (4) Acute UTI: Code(s): N39.0 - Urinary tract infection, site not specified Status: Acute (5) CHF (congestive heart failure): Code(s): I50.9 - Heart failure, unspecified Status: Acute (6) Essential (primary) hypertension: Code(s): I10 - Essential (primary) hypertension Status: Chronic DS: Summary Hospital Course Reason for hospitalization: Sepsis acute hypoxic respiratory failure influenza a acute UTI CHF essential hypertension Hospital Course: This is an 83 year old male with a significant past medical history of hypertension, sleep apnea, BPH, former smoker quit in 1968 who presented to the hospital with complaints of acute respiratory failure with hypoxia requiring oxygen. Work up in the hospital included A chest x-ray which showed mild pulmonary vascular congestion without focal infiltrate or effusion. Initial labs showed a normal white blood cell count of 5.3, hemoglobin 12.1, platelet count 112, anion gap of 14, blood sugars ranging 115-143, alkaline phosphate 125, proBNP 7376. A UA was obtained which showed turbid urine appearance, trace urine protein, 1+ urine ketones, 1+ urine blood, 2.0 urine urobilinogen, 3+ leukocytes, 11-20 urine RBC, 31-50 urine WBC, moderate amorphous sediment, 4+ bacteria, heavy urine mucus. Respiratory panel was positive for influenza A. Blood and urine cultures were obtained and pending. EKG shown sinus rhythm with first-degree AV block with a rate of 63, QTC 431. Patient was started on Zosyn, given IV fluids, Lasix while in the ED. Urine culture shown Staphylococcus aureus on final read which was pansensitive to Levaquin. Blood cultures still showing no growth to date on preliminary read. Labs were essentially unremarkable. Vital signs are stable, he is afebrile, he is currently on room air. Patient is stable for discharge today. He was given a prescription for Levaquin Q 48 hour which is renally dosed. He was instructed to stay hydrated and advance his diet back to regular food as tolerated. He will need to follow up with his primary care doctor in 1 week. final diagnosis: sepsis, acute hypoxic respiratory failure, influenza a, acute urinary tract infection, CHF exacerbation Status at Discharge Cognitive/behavioral status at discharge: alert oriented x4 Functional status at discharge: independent ambulation Overall status at discharge: patient is progressing back to baseline Time Spent with Patient Time attestation: Total time spent providing and/or coordinating discharge services: Time spent: Greater than 30 minutes Exam Narrative: General: In no acute distress, well nourished Cardiac: Normal S1 and S2. No murmur, gallops or friction rubs, peripheral pulses intact. Respiratory: Lungs clear to auscultation, no adventitious lung sounds, currently on room air Gastrointestinal: soft, non-distended, non-tender, normoactive bowel sounds. : voiding without difficulty. Neuro: Alert and oriented x4 DS: Data Data Completed and Pending Completed studies during hospitalization: chest x-ray Pending studies at discharge: urine and blood cultures Labs on day of discharge: Labs from last 24 hours 05/20/24 05/19/24 09:28 12:03 WBC 6.2 RBC 3.69 L Hgb 12.3 L Hct 37.0 MCV 100.3 MCH 33.3 H MCHC 33.2 RDW 14.2 Plt Count 124 L MPV 10.0 Immature Gran % (Auto) 0.3 H Neut % (Auto) 72.4 H Lymph % (Auto) 18.7 [place] % (Auto) 7.1 Eos % (Auto) 1.5 Baso % (Auto) 0.0 Lymph # (Auto) 1.16 [place] # (Auto) 0.44 Eos # (Auto) 0.09 Baso # (Auto) 0.00 Abs Immat Gran (auto) 0.02 H Absolute Neuts (auto) 4.48 Absolute Nucleated RBC 0.00 Nucleated RBC % 0.0 % Immature Plt Fraction 3.0 Sodium 136 Potassium 3.2 L Chloride 99 Carbon Dioxide 29 Anion Gap 8 BUN 19 H Creatinine 1.30 Estim Creat Clear Calc 41 Estimated GFR 52 L Glucose 115 H Calculated Osmolality 285 Calcium 7.7 L Total Bilirubin 0.5 AST 26 ALT 16 Alkaline Phosphatase 100 Total Protein 5.7 L Albumin 2.7 L Nasal MRSA (PCR) Not detected Procedures/Treatments: none Discharge Plan Discharge Attending physician on discharge: Paul Johnson Consulting providers: Lori Espinoza; Pramod Small; Lindy Tobar Discharging Clinician: Lori Espinoza Anticipated Discharge Date/Time: 05/20/24 09:16 Patient Disposition: Home, Self-Care Activity: as tolerated Diet: as tolerated and heart healthy Discharge Instructions: If initial your antibiotic even if your feeling better we will continue to watch her urine culture and if we need to change anything we will call you based on the results. Follow-up with your primary care doctor in 1 week stay hydrated and advance diet as tolerated Patient Instructions: Antibiotic Form, Levofloxacin (By mouth), Urinary Tract Infection in Men (ED), Influenza (DC), Fall Prevention for Older Adults (DC) Patient Language: Hungarian Stand Alone Forms: General Discharge Information Follow-up/Referrals: Nilda,MD Sam [Primary Care Provider] - 1 week Discharge Medications: New levofloxacin 750 mg Tablet 750 mg PO Q48H Qty: 3 0RF Continued lisinopril 30 mg tablet 30 mg PO DAILY Qty: 30 2RF fluticasone propionate [Flonase Allergy Relief] 50 mcg/actuation spray,suspension 1 spray INTRANASAL PRN PRN (Reason: Allergy Symptoms) Complete Multivitamin Tablet 1 tablet PO DAILY sennosides-docusate sodium [Senokot-S] 8.6-50 mg Tablet 2 tab PO BID Qty: 60 0RF polyethylene glycol 3350 [Miralax] 17 gram Powder In Packet 17 g PO QAM Qty: 30 0RF tamsulosin 0.4 mg capsule 0.4 mg PO HS Qty: 90 1RF Date of admission: 05/18/24 23:30 Primary Care Provider: NildaSam Admitting Provider: Paul Johnson Attending physician on admission: Lori Espionza Condition: Improved Quality VTE Prophylaxis VTE prophylaxis: pharmacologic ordered Hospitalist MIPS Heart Failure (Exclusion) Patient has history of Heart Transplant or Left Ventricular Assistive Device?: No IF YES, STOP HERE Heart Failure (Qualifier) Patient has current or prior documentation of LVEF less than or equal to 40%, or mod/servere depressed LVSF?: No IF NO, STOP HERE
--- NOTE | 2024-05-20 14:16 | PC.NURSE ---
Patient left facility via wheelchair to personal car to be excorted home by family friend. All instructions given with verbal understanding.
--- NOTE | 2024-05-22 12:12 | PC.NURSE ---
Discharge call back attempted, no answer
== END 2024-05-20 14:00 | disposition home or self-care (01) ==
LOC: CHSED 23:11 → CHS2ND 23:31
PROVIDERS: Admitting Provider Internal Medicine; Emergency Provider Emergency Medicine; PCP Family Medicine; Visit Provider Nurse Practitioner Acute Care
DX: A41.9 Sepsis, unspecified organism (principal); J10.1 Influenza due to other identified influenza virus with other respiratory manifestations; J96.01 Acute respiratory failure with hypoxia; N39.0 Urinary tract infection, site not specified; B95.61 Methicillin susceptible Staphylococcus aureus infection as the cause of diseases classified elsewhere; I11.0 Hypertensive heart disease with heart failure; I50.9 Heart failure, unspecified; I49.3 Ventricular premature depolarization; N40.0 Benign prostatic hyperplasia without lower urinary tract symptoms; G47.30 Sleep apnea, unspecified; Z87.891 Personal history of nicotine dependence; Z20.822 Contact with and (suspected) exposure to COVID-19; Z79.899 Other long term (current) drug therapy; Z96.652 Presence of left artificial knee joint; Z90.49 Acquired absence of other specified parts of digestive tract
CPT/HCPCS: 36415; 71045; 80053; 81001; 83605; 83880; 84484; 85025; 85055; 87040; 87086; 87181; 87637; 87641; 93005; 96365; 96366; 96367; 96372; 96375; 96376; 97161; 99285; A9270; G0378; J0696; J1650; J1940; J2543; J7030

== ENCOUNTER 2025-02-25 02:00 | Emergency (ER) | payer MEDICARE, SELFPAY ==
[2025-02-25] VITALS (24 sets, daily range): BP systolic 137–184; BP diastolic 88–118; PULSE 69–93; RESP 14–24; TEMP 35.9–36.4; O2SAT 68–98
--- NOTE | ~2025-02-25 | CT_ITS ---
CT HEAD NON-CONTRAST CT C-SPINE Clinical History: fall/HIT FOREHEAD Comparison: None Technique: Unenhanced axial images skull base to vertex. Coronal, sagittal reformats. Axial images thoracic inlet to skull base. Sagittal and coronal reformats. CT images acquired with automatic exposure control for dose reduction DLP: 757 mGy-cm Findings: Head: Age-related atrophy. Chronic white matter microvascular ischemic changes. Broad-based focus isodense to mora matter along right lateral frontal calvarium most consistent with meningioma. Sulci, ventricles: Unremarkable. No intracerebral hemorrhage. No evidence acute territorial infarct. No mass effect, midline shift, intra-/extra-axial fluid collection. Bony calvarium intact. Visualized paranasal sinuses: Clear. Mastoid air cells: Clear. C-spine: Nondisplaced fractures along pedicles of C2 bilaterally. Nondisplaced fracture tip of right pedicle C3. Vertebral bodies normal height and alignment. No significant degenerative changes. Disc spaces maintained. Prevertebral soft tissues within normal limits. Visualized lung apices: Large right pleural effusion. Visualized thyroid: Unremarkable. No enlarged cervical nodes. Findings discussed via telephone by myself with Dr. Quinones at 7:15 AM EST. IMPRESSION: HEAD: 1. No acute intracranial findings. C-SPINE: 1. Nondisplaced fractures along pedicles of C2 bilaterally. Recommend CTA neck to evaluate vertebral artery patency. Reviewed, dictated and finalized at location R. UNTING TECHNICIAN IMPRESSION: HEAD: 1. No acute intracranial findings. C-SPINE: 1. Nondisplaced fractures along pedicles of C2 bilaterally. Recommend CTA neck to evaluate vertebral artery patency.
--- NOTE | ~2025-02-25 | CT_ITS ---
CTA neck Clinical History: C2 fx/REQUESTED BY RAD Technique: Helical images thoracic inlet through skull base 100 mL Omnipaque 350 Coronal, sagittal reformats. Multi planar MIPS CT images acquired with automatic exposure control for dose reduction. DLP: 888 mGy-cm Comparison: CT C-spine earlier same day Findings: NASCET Criteria utilized CTA FINDINGS: Aortic arch: No aneurysm or dissection. Great vessel origins: No stenosis. CCAs: No stenosis. Cervical ICAs: No stenosis. Vertebral Arteries: Patent. Visualized [place]: Unremarkable. NON-CTA FINDINGS: Lung Apices: Large right pleural effusion. Small left pleural effusion. Calcified pleural plaques. Cardiomegaly. Thyroid: Unremarkable. Nodes: No enlarged nodes. Bones: Bilateral C2 pedicle fracture. IMPRESSION: 1. No acute arterial abnormality. 2. Large right and small left pleural effusions. Reviewed, dictated and finalized at location R. ERY MATER
--- NOTE | 2025-02-25 02:04 | ECG_ITS ---
Test Date: 2025-02-25 02:31:47 Measurements Intervals [place] Rate: 77 P: 0 CA: 0 QRS: 21 QRSD: 110 T: 52 QT: 417 QTc: 472 Interpretive Statements ATRIAL FIBRILLATION BASELINE ARTIFACT- I, III, V3 ABNORMAL ECG Compared to ECG 05/18/2024 21:25:18 Sinus rhythm no longer present Electronically Signed On 02-25-2025 06:18:07 EXTENSION DIVISION DIRECTOR by Pramod Small D.O.
--- NOTE | 2025-02-25 02:38 | PC.NURSE ---
bleach range operator at bedside for blood draw. ekg completed and pt able to use urinal independently while laying on stretcher. clear, yellow urine obtained. pt awaiting results of labs and imaging. call light within reach. pt given warm blanket for comfort.
[2025-02-25 02:46] LABS: Hematocrit 36.5 % (37.0-46.0); Hemoglobin 12.0 g/dL (12.4-15.3); Immature Granulocyte Percent A 0.4 % (0.0-0.0); Lymphocytes Absolute Auto 1.17 K/mm3 (1.10-4.50); Mean Corpuscular HGB Conc 32.9 g/dL (32-36); Mean Corpuscular Hemoglobin 32.5 pg (27.0-31.0); Mean Corpuscular Volume 98.9 fL (78.0-102.0); Nucleated Red Blood Cells Absolute Auto 0.00 K/mm3 (0.00-0.00); Nucleated Red Blood Cells Perc 0.0 % (0-0.0); Platelet Count Result 165 K/mm3 (150-420); Red Blood Count 3.69 M/mm3 (4.70-6.10); White Blood Count 4.9 K/mm3 (4.8-10.8)
[2025-02-25 02:57] LABS: Alanine Aminotransferase 15 U/L (6-50); Albumin Level 4.2 g/dL (3.5-5.1); Alkaline Phosphatase 123 U/L (38-126); Anion Gap 16 mmol/L (4-12); Aspartate Amino Transferase 43 U/L (17-59); Bilirubin,Total 1.1 mg/dL (0.2-1.3); Blood Urea Nitrogen 9 mg/dL (9-20); Calcium 8.8 mg/dL (8.4-10.2); Carbon Dioxide 20 mmol/L (22-30); Chloride 99 mmol/L (98-107); Estimated Glomerular Filt Rate > 60; Glucose 89 mg/dL (65-110); Osmolality Calculated 277 mOsm/kg (285-295); Potassium 3.7 mmol/L (3.4-5.0); Sodium 135 mmol/L (137-145); Total Protein 6.5 g/dL (6.3-8.2)
[2025-02-25] MEDS: NEOMYCIN/POLYMYXIN/BACITRACIN OINTMENT PACKET 2 PACKET TOPICAL (03:28)
[2025-02-25] MEDS: MORPHINE SULFATE (*CRX) 2 MG/ML INJ IV PUSH (03:41)
--- NOTE | 2025-02-25 04:00 | PC.NURSE ---
ERP Dr. Quinones at pt bedside for update and results. c-collar removed as imaging revealed no acute findings. pt reports improved pain post medical office secretary.
--- NOTE | 2025-02-25 04:04 | ED.FALL ---
HPI - Fall General Chief Complaint: Fall Stated Complaint: fall Time Seen by Provider: 02/25/25 02:03 Source: patient Mode of arrival: EMS Limitations: no limitations History of Present Illness HPI Narrative: 84-year-old with a history of hypertension was brought in by EMS with a complains of fall at home. Patient was found on the floor by his the live in neighbor , complaints neck pain. He denies LOC no chest pain or palpitation prior to the fall. He states he might have tripped and fell .. complaint: fall Onset (ago): hour(s) (1) Fall from: standing Place fall occurred: home Loss of consciousness: none Prolonged down time: no Symptoms prior to fall: none Context: tripped/slipped Location of injury: face Location of injury - extremities: Left: elbow and forearm Severity: moderate Associated symptoms (after fall): neck pain Related Data Home Medications ?Medication ?Instructions ?Recorded ?Confirmed ?Last Taken ?Type multivitamin,ss-mpve-[id number] 1 tablet PO DAILY 12/19/19 02/25/25 1 Week Ago History (Complete Multivitamin tablet) ~12/31/19 benzonatate 200 mg capsule 200 mg PO TID PRN cough 02/25/25 02/25/25 Unknown History finasteride 5 mg tablet 5 mg PO DAILY 02/25/25 02/25/25 Unknown History hydrocodone 7.5 mg-acetaminophen 1 tablet PO HS PRN pain 02/25/25 02/25/25 Unknown History 325 mg tablet metoprolol succinate 50 mg 50 mg PO DAILY 02/25/25 02/25/25 Unknown History tablet,extended release 24 hr Allergies Allergy/AdvReac Type Severity Reaction Status Date / Time No Known Allergies Allergy Verified 02/25/25 02:24 Review of Systems Review of Systems: All systems reviewed & are unremarkable except as noted in HPI and below Constitutional: Constitutional: Reports no additional constitutional complaints Eyes: Eyes: Reports no additional eye complaints ENT: Reports system reviewed and no additional complaints, except as documented Cardiovascular: Cardiovascular: Reports no additional cardiovascular complaints Respiratory: Respiratory: Reports no additional respiratory complaints Gastrointestinal: Gastrointestinal: Reports no additional gastrointestinal complaints Musculoskeletal: Musculoskeletal: Reports as per HPI [facility] Past Medical History Medical History CHF (congestive heart failure) PVC (premature ventricular contraction) History of anal fissures repair BPH w urinary obs/LUTS Essential (primary) hypertension Polyp of colon 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 jones H/O left inguinal hernia repair 2011the patient had I and D of a hematoma postoperatively History of right inguinal hernia repair 01/20/19 History of colon resection laparoscopic sigmoid colon resection H/O repair of rotator cuff Family History Family History Father Family history of malignant neoplasm of urinary bladder Malignant neoplasm of prostate Cancer Sibling Cancer Diabetes mellitus Social History Social History Social History: the patient is and lives with his . However his daughter sandro is his durable power ip technology transactions attorney for healthcare. The patient desires to be a full code. The patient is retired from the [employer] He has 1 son and 1 daughter. Patient quit smoking in 1968. No marijuana or illicit drugs. Smoking packs per day: 1 Smoking cigarettes per day: 20.0 Years smoked: 25 Smoking pack-years: 25.00 Smoking status: Former smoker Tobacco type: cigarettes Second hand tobacco smoke exposure: Yes Smoking end date: 03/26/68 Additional smoking assessment comments: DENIES ANY FORM OF TOBACCO/NICOTINE USE Alcohol intake: current Drinks per week: 28 Alcohol use details: BEER Substance use: never Substance use type: does not use Living arrangements: alone Occupation/Education: retired Gender identity (if verbalized by the patient): Male Sexual Orientation (if Verbalized by the Patient): Straight or Heterosexual Spiritual care concerns: No Exam Narrative: GENERAL: Well-appearing, well-nourished, and in no acute distress. HEAD: Normocephalic, atraumatic.abrasion on the fore head EYES: PERRLA and EOMI. ENT: Nares clear, no rhinorrhea or epistaxis. Mucous membranes moist. NECK: Supple. CHEST: Clear to auscultation. No respiratory distress. HEART: Regular rate and rhythm. No murmur heard. Normal peripheral pulses. ABDOMEN: Soft, nontender, nondistended, normal active bowel sounds. EXTREMITIES: Normal range of motion. No edema. multiple skin tears on the left forearm and elbow SKIN: Warm, dry, no rash. NEURO: No focal deficits. Alert and oriented x3. PSYCH: Normal mood and affect. Course Course Emergency Course: CT of the head and C spine were done which showed no acute findings , EKG and labs were done which were all normal . C collar was removed after the CT results. His skin tears were closed with steri strips.. he feels much better will discharged home. Was called by the Radiologist that he has C2 Fx recommended CTA of the neck . Discussed with Dr. Wood GALINDO at [facility] will accept the pt in transfer . Vital Signs Vital signs: Vital Signs Temperature 35.9 C L 02/25/25 02:00 Pulse Rate 70 02/25/25 02:00 Respiratory Rate 15 02/25/25 02:00 Blood Pressure 168/101 H 02/25/25 02:00 Pulse Oximetry 98 02/25/25 02:00 Oxygen Delivery Room Air 02/25/25 02:00 Temperature 36.1 C L 02/25/25 04:01 Pulse Rate 79 02/25/25 04:15 Respiratory Rate 16 02/25/25 04:15 Blood Pressure 137/97 H 02/25/25 04:01 Pulse Oximetry 97 02/25/25 04:15 Oxygen Delivery Room Air 02/25/25 04:15 Procedures Laceration Laceration 1: Date: 02/25/25 Site: upper extremity (left elbow) Size (cm): 4 Description: linear Depth: simple, single layer Local Anesthetic: none ====== Skin Level ====== Skin layer closed with: steri strips (4) ====== Subcutaneous Layer ====== ====== Muscle Layer ====== ====== Tendon Layer ====== MDM Differential Diagnosis Differential Diagnosis: Head injury , ICH , Cervical FX Medical Records I have reviewed the following patient records and this information was taken into consideration when formulating the assessment and plan.: previous labs and previous ER visits Lab Data [facility] Lab Attestation statement: I personally reviewed the patient's lab results. 02/25/25 02:40 02/25/25 02:40 Labs: Lab Results 02/25/25 Range/Units 02:40 WBC 4.9 (4.8-10.8) K/mm3 RBC 3.69 L (4.70-6.10) M/mm3 Hgb 12.0 L (12.4-15.3) g/dL Hct 36.5 L (37.0-46.0) % MCV 98.9 (78.0-102.0) fL MCH 32.5 H (27.0-31.0) pg MCHC 32.9 (32-36) g/dL RDW 13.7 (11.6-14.4) % Plt Count 165 (150-420) K/mm3 MPV 10.1 (8.7-11.0) fl Immature Gran % (Auto) 0.4 H (0.0-0.0) % Neut % (Auto) 61.8 (50.0-70.0) % Lymph % (Auto) 23.9 (18.0-42.0) % [place] % (Auto) 11.7 H (2.0-11.0) % Eos % (Auto) 1.6 (1.0-6.0) % Baso % (Auto) 0.6 (0.0-1.0) % Lymph # (Auto) 1.17 (1.10-4.50) K/mm3 [place] # (Auto) 0.57 (0.10-0.90) K/mm3 Eos # (Auto) 0.08 (0.02-0.50) K/mm3 Baso # (Auto) 0.03 (0.00-0.10) K/mm3 Abs Immat Gran (auto) 0.02 H (0.00-0.00) K/mm3 Absolute Neuts (auto) 3.02 (1.70-7.20) K/mm3 Absolute Nucleated RBC 0.00 (0.00-0.00) K/mm3 Nucleated RBC % 0.0 (0-0.0) % Sodium 135 L (137-145) mmol/L Potassium 3.7 (3.4-5.0) mmol/L Chloride 99 (98-107) mmol/L Carbon Dioxide 20 L (22-30) mmol/L Anion Gap 16 H (4-12) mmol/L BUN 9 D (9-20) mg/dL Creatinine 0.93 (0.7-1.3) mg/dL Estim Creat Clear Calc Not Reportable Estimated GFR > 60 (59 - ) Glucose 89 (65-110) mg/dL Calculated Osmolality 277 L (285-295) mOsm/kg Calcium 8.8 (8.4-10.2) mg/dL Total Bilirubin 1.1 (0.2-1.3) mg/dL AST 43 (17-59) U/L ALT 15 (6-50) U/L Alkaline Phosphatase 123 (38-126) U/L Total Protein 6.5 (6.3-8.2) g/dL Albumin 4.2 (3.5-5.1) g/dL Imaging Data Radiologist's impression: ITS Impressions Cervical Spine CT 02/25/25 06:08 IMPRESSION: HEAD: 1. No acute intracranial findings. C-SPINE: 1. Nondisplaced fractures along pedicles of C2 bilaterally. Recommend CTA neck to evaluate vertebral artery patency. Head CT 02/25/25 06:08 IMPRESSION: HEAD: 1. No acute intracranial findings. C-SPINE: 1. Nondisplaced fractures along pedicles of C2 bilaterally. Recommend CTA neck to evaluate vertebral artery patency. CT of the head shows no acute intracranial hemorrhage. Atrophy. Nonspecific white matter disease. There is some soft tissue swelling of the scalp. CT of the cervical spine without contrast shows no acute fracture. Hypertrophic degenerative changes. ECG Data EKG #1: ECG completion date: 02/25/25 ECG completion time: 02:31 atrial fibrillation (77), no ectopy, normal QRS and normal QT Discharge Plan Discharge Clinical Impression: Minor closed head injury, Multiple skin tears Fall Qualifiers: Encounter type: initial encounter Qualified Code(s): W19.XXXA - Unspecified fall, initial encounter C2 cervical fracture Qualifiers: Encounter type: initial encounter Fracture type: closed Fracture morphology: unspecified fracture morphology Fracture alignment: nondisplaced Qualified Code(s): S12.101A - Unspecified nondisplaced fracture of second cervical vertebra, initial encounter for closed fracture Patient Disposition: Acute Care Hospital Condition: Stable Additional Instructions: Fall precautions, continue home medications, rest . follow with your doctor. Patient Language: Sammarinese Prescriptions: No Action metoprolol succinate 50 mg tablet extended release 24 hr 50 mg PO DAILY finasteride 5 mg tablet 5 mg PO DAILY hydrocodone-acetaminophen 7.5-325 mg tablet 1 tablet PO HS PRN (Reason: pain) benzonatate 200 mg capsule 200 mg PO TID PRN (Reason: cough) Complete Multivitamin Tablet 1 tablet PO DAILY sennosides-docusate sodium [Senokot-S] 8.6-50 mg Tablet 2 tab PO BID Qty: 60 0RF polyethylene glycol 3350 [Miralax] 17 gram Powder In Packet 17 g PO QAM Qty: 30 0RF tamsulosin 0.4 mg capsule 0.4 mg PO HS Qty: 90 1RF Follow-up/Referrals: Nilda,MD Sam [Primary Care Provider, Family Practice] Time of Disposition: 07:10
--- NOTE | 2025-02-25 06:30 | PC.NURSE ---
PT UPDATED ON NEW RESULTS CALLED IN BY RADIOLOGIST RE: NEWLY SEEN FX OF C2. C-COLLAR REAPPLIED AND PT UPDATED. AT THIS TIME PT TELLS RN HE DOES NOT WANT TO GO TO A TRANSFER HOSPITAL. PT A/O X 4.
--- NOTE | 2025-02-25 06:45 | PC.NURSE ---
THIS RN SPOKE WITH PT REGARDING RESULTS AND PLAN OF TREATMENT, THAT HE IS UNABLE TO GO HOME WITH THIS FRACTURE. PT NOW AGREEABLE TO PLAN OF TRANSFER TO HIGHER LEVEL OF CARE.
--- NOTE | 2025-02-25 07:16 | PC.NURSE ---
NURIS HOLMAN ATTEMPTED TO PHONE PT DAUGHTER TO NOTIFY HER HOWEVER NO ANSWER AND NO MESSAGE AVAILABLE AT THIS TIME. PT REMAINS AWAKE AND ALERT RESTING ON STRETCHER WITHOUT DISTRESS AND C-COLLAR IN PLACE. EDUCATION PROVIDED TO PATIENT. PT HAS PERSONAL CELL AVAILABLE TO PHONE FAMILY AND FRIENDS AT THIS TIME HE HAS BEEN COMMUNICATING WITH HIS FRIEND RUIZ.
== END 2025-02-25 07:39 | disposition short-term general hospital (02) ==
PROVIDERS: Emergency Provider Family Medicine; PCP Family Medicine
DX: S12.101A Unspecified nondisplaced fracture of second cervical vertebra, initial encounter for closed fracture (principal); S51.012A Laceration without foreign body of left elbow, initial encounter; I11.0 Hypertensive heart disease with heart failure; I50.9 Heart failure, unspecified; Z79.891 Long term (current) use of opiate analgesic; Z79.899 Other long term (current) drug therapy; Z87.891 Personal history of nicotine dependence; W18.30XA Fall on same level, unspecified, initial encounter; Y92.009 Unspecified place in unspecified non-institutional (private) residence as the place of occurrence of the external cause
CPT/HCPCS: 36415; 70450; 70498; 72125; 80053; 85025; 93005; 96374; 99285; J2270; Q9967